=== PATIENT | male | born 1975 | race Caucasian/White ===

== ENCOUNTER 2023-01-07 21:45 | Outpatient (REF) | payer BC, SELFPAY ==
[2023-01-07 16:06] LABS: Abs Immature Grans 0.02 10^3/uL (0.0-0.06); Absolute Basophil Count 0.01 10^3/uL (0.0-0.2); Absolute Eosinophil Count 0.13 10^3/uL (0.0-0.7); Absolute Lymphocyte Count 2.53 10^3/uL (1.2-3.4); Absolute Monocyte Count 0.64 10^3/uL (0.1-0.8); Absolute Neutrophil Count 2.75 10^3/uL (1.2-6.7); Basophils % 0.2; Eosinophils % 2.1; HCT 41.8 % (40.0-50.0); HGB 13.9 g/dL (13.5-17.5); Immature Grans % 0.3; Lymphocytes % 41.6; MCH 29.1 pg (27.0-33.0); MCHC 33.3 % (32.0-36.0); MCV 87 fL (80-95); Monocytes % 10.5; Neutrophils % 45.3; Platelet Count 207 10^3/uL (130-400); RBC 4.78 10^6/uL (4.36-5.78); RDW 12.6 % (11.8-14.1); RDW-SD 40.7 fL; WBC 6.08 10^3/uL (4.4-10.8)
[2023-01-07 16:29] LABS: ALT 41 U/L (16-63); AST 26 U/L (15-37); Albumin 4.3 g/dL (3.4-5.0); Alkaline Phosphatase 81 U/L (46-116); Anion Gap 7.8 mmol/L (3-11); BUN 23 mg/dL (7-18); Bilirubin, Total 0.2 mg/dL (0.2-1.0); CO2 29.2 mmol/L (21.0-32.0); CREATININE 0.6 mg/dL (0.70-1.30); Calcium 9.8 mg/dL (8.5-10.1); Calculated LDL 97 mg/dL (<100); Chloride 101 mmol/L (98-107); Cholesterol 156 mg/dL (<200); Estimated GFR 119.07 (mL/min/1.73m2); Glucose 102 mg/dL (74-106); HDL Cholesterol 37 mg/dL (40-60); Potassium 4.2 mmol/L (3.5-5.1); Sodium 138 mmol/L (136-145); Total Protein 8.3 g/dL (6.4-8.2); Triglyceride 112 mg/dL (<150)
[2023-01-07 17:11] LABS: Hemoglobin A1C 5.7 % (<5.7)
[2023-01-08 11:52] LABS: Hepatitis C Ab w Rflx HCV PCR Reactive (Negative)
[2023-01-09 12:23] LABS: HCV RNA Qualitative Undetected (Undetected)
== END 2023-01-07 21:46 | disposition home or self-care (01) ==
LOC: NCHCN 21:45
PROVIDERS: PCP Nurse Practitioner Family; Visit Provider Nurse Practitioner Family
DX: Z00.00 Encounter for general adult medical examination without abnormal findings (principal); Z72.0 Tobacco use; R73.03 Prediabetes; R06.2 Wheezing; D64.9 Anemia, unspecified; F12.10 Cannabis abuse, uncomplicated; B19.20 Unspecified viral hepatitis C without hepatic coma; I10 Essential (primary) hypertension
CPT/HCPCS: 80053; 80061; 86803; 87522; 83036; 85025

== ENCOUNTER 2023-03-08 13:20 | Emergency (ER) | payer BC, SELFPAY ==
[2023-03-08 13:32] VITALS: BP 131/83; PULSE 115; RESP 18; TEMP 37.2; O2SAT 98
--- NOTE | 2023-03-08 13:45 | DI.RAD_ITS ---
Exam(s) XR HAND RT COMPLETE EXAM: XR HAND RT COMPLETE CLINICAL HISTORY: trauma. TECHNIQUE: 2D digital imaging was performed. Three views. COMPARISON: No exams were available for comparison FINDINGS: BONES: No acute fracture is present. No bony destructive lesion is seen. JOINTS: No dislocation present. Severe deformity at the 1st carpal metacarpal joint. Narrowing of the capitate lunate joint. SOFT TISSUE: Dorsal swelling. No gas collection or foreign body. IMPRESSION: Dorsal soft tissue swelling. No acute fracture. DATA REPOSITORY: RADIATION DOSE DELIVERED:
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
--- NOTE | 2023-03-08 15:23 | DI.VRAD_ITS ---
PROCEDURE INFORMATION: Exam: XR Right Hand Exam date and time: 03/08/2023 2:23 PM Age: 48 years old Clinical indication: Other: Trauma TECHNIQUE: Imaging protocol: Radiologic exam of the right hand. 3image(s) are provided. Views: 3 or more views. COMPARISON: No relevant prior studies available. FINDINGS: Bones/joints: Osseous alignment is maintained.No displaced fracture or dislocation is appreciated. There is however some advanced chronic degenerative deformity about the 1st carpometacarpal junction. There is some mild chronic appearing radiocarpal level narrowing. Soft tissues: No radiopaque foreign body or diffuse subcutaneous emphysema is appreciated. There is some diffuse soft tissue swelling demonstrated overall including dorsal predominance on the lateral view. IMPRESSION: There is diffuse soft tissue swelling with some dorsal predominance on the lateral view. Consider if there is history of injury or inflammation as this could be seen with either these processes. Dictated and Authenticated by: Parveen Estevez MD. Ordering:WES Klein MD
== END 2023-03-08 14:54 | disposition home or self-care (01) ==
PROVIDERS: Emergency Provider Emergency Medicine; PCP Nurse Practitioner Family
DX: L03.113 Cellulitis of right upper limb (principal)
CPT/HCPCS: 99283; 73130; 99284

== ENCOUNTER → 2023-03-17 01:05 | Outpatient (CLI) | payer BC, SELFPAY ==
--- NOTE | 2023-03-17 09:30 | DI.RAD_ITS ---
Exam(s) RF BARIUM SWALLOW EXAM: RF BARIUM SWALLOW CLINICAL HISTORY: INTERMITTENT DYSPHAGIA, R13.10 TECHNIQUE: 2D and realtime digital imaging was performed. CONTRAST MATERIAL: Oral barium Oral water soluble contrast was administered. COMPARISON: No exams were available for comparison FINDINGS: CHEST X-RAY: The heart and pulmonary vasculature are within normal limits. The lungs are clear. No pl eural effusion or pneumothorax is present. The bones are within normal limits for the patient's age. ESOPHAGRAM: The esophagus is patent with no evidence for erosions, fold thickening, strictures, or ma sses. With regards to the motility, there is a normal primary stripping wave. There is a small outpou theo in the mid esophagus just below the aortic knob. There is a question of some irregularity of t he base of the outpouching. There is a small hiatal hernia. IMPRESSION: 1. Small outpouching in the mid esophagus just below the aortic knob with question of irregularity of the base. Upper endoscopy is recommended for further evaluation. Ulceration or mass should be excl uded. 2. Small hiatal hernia. Unexpected findings RADIATION DOSE DELIVERED: roni Culp=32.1 mGy
[2023-03-17] MEDS: Barium Sulfate 700 MG TAB PO (10:38)
[2023-03-17] MEDS: Simethicone/Sod Bicarb/Cit Ac, 4 gram PACKET 1 PACKET PO (10:38)
[2023-03-17] MEDS: Barium Sulfate 60% W/V 355 ML BTL PO (10:39)
[2023-03-17] MEDS: Barium Sulfate 98% W/W 140 ML BTL PO (10:39)
== END ==
PROVIDERS: PCP Nurse Practitioner Family; Visit Provider Nurse Practitioner Family
DX: Q40.1 Congenital hiatus hernia (principal); R13.10 Dysphagia, unspecified
CPT/HCPCS: 74221; J3490

== ENCOUNTER 2023-04-23 09:11 | Day surgery (SDC) | payer BC, SELFPAY ==
[2023-04-23 09:40] VITALS: BP 124/90; PULSE 69; RESP 16; TEMP 36.5; O2SAT 98
[2023-04-23] MEDS: Lactated Ringers 1,000 ML 80 ML IV (10:17)
--- NOTE | 2023-04-23 10:17 | ANES.PREOP_ITS ---
General Info Date of Service Date Performed: 04/23/23 Height: 5 ft 10 in Weight: 96.434 kg Body Mass Index (BMI): 30.4 Surgical Procedure: Operation Date: 04/23/23 10:05 Proposed Procedure Side Surgeon p Gastroscopy Dominga Hernandez MD Meds Allergies and Home Medications Allergies Allergy/AdvReac Type Severity Reaction Status Date / Time No Known Allergies Allergy Verified 04/21/23 15:18 Home Medication Medication Instructions Recorded acetaminophen 650 mg PO PRN PRN 11/19/21 buprenorphine 2 mg-naloxone 0.5 mg 2 film buccal TID 11/19/21 sublingual film inulin 2 gram chewable tablet 4 g PO DAILY 11/19/21 (Fiber Gummies) lisinopril 40 mg tablet 40 mg PO DAILY 11/19/21 multivitamin 1 tab PO DAILY 11/19/21 naproxen 500 mg tablet 500 mg PO DIRECTED PRN 11/19/21 albuterol sulfate 90 mcg/actuation 2 puff inhalation PRN PRN 03/08/23 aerosol inhaler Current Visit Medications: Current Medications Generic Name Dose Route Start Last Admin Trade Name Freq PRN Reason Stop Dose Admin Ringer's Solution 1,000 mls @ 80 mls/hr 04/23/23 06:00 04/23/23 10:17 IV 05/22/23 23:59 80 mls/hr INFUSION JEANINE Administration IV Miscellaneous Supplies 1 each 04/23/23 06:00 Iv Access IV 05/22/23 23:59 DIRECTED JEANINE Sodium Chloride 0 ml 04/23/23 06:00 Normal Saline Flush 10 Ml Syr IV 05/22/23 23:59 PRN PRN Sodium Chloride 0 ml 04/23/23 06:00 Normal Saline 10 Ml Vial IJ 05/22/23 23:59 DIRECTED PRN Sterile Water 0 ml 04/23/23 06:00 Water,Injection,Sterile 10 Ml Vial IJ 05/22/23 23:59 DIRECTED PRN PFSH Active Problems Active Problems: Problem Status Onset Code Sensorineural hearing loss (SNHL) of both ears H90.3 Dysphagia R13.10 Cellulitis of right hand L03.113 Medical History Medical History Anemia Expiratory wheezing Family history of colon cancer Hepatitis C per pt. tx and cured Hypertensive disorder Joint pain Left shoulder pain Opioid abuse, in remission h/o IVDU, sober since 2007 Prediabetes Wheezing Surgical History Surgical History (Updated 04/23/23 @ 09:59 by Mellisa Higginbotham RN) H/O foot surgery H/O shoulder surgery History of colonoscopy History of hernia repair Tobacco Smoking/Tobacco Use Status: Current every day Tobacco Type: cigarettes and e- cigarettes Alcohol Alcohol Intake: never Substance Use Substance use: Occasionally Substance use type: marijuana Vital Signs and Lab Results Vital Signs Most Recent Vital Signs in EMR: Most Recent Vital Signs Temp Pulse Resp BP Pulse Ox 36.5 C 69 16 124/90 98 04/23/23 09:40 04/23/23 09:40 04/23/23 09:40 04/23/23 09:40 04/23/23 09:40 Lab Results Blood Type / Crossmatch: No Data to Display Complete Blood Count: No Data to Display Complete Metabolic Panel: No Data to Display Liver Function Panel: No Data to Display Coagulation Panel: No Data to Display Cardiac Panel: No Data to Display Arterial Blood Gas: No Data to Display Venous Blood Gas: No Data to Display Pancreas Panel: No Data to Display Thyroid Panel: No Data to Display Infectious Disease: No Data to Display Blood Cultures: No Data to Display Toxicology Panel: No Data to Display Anesthesia Assessment and Plan Anesthesia History Personal History: No History of Anesthesia Complications Family History: No Family History of Anesthesia Complications Exercise Tolerance Exercise Tolerance: Metabolic Equivalents>4 Pertinent Negatives Pertinent Negatives: No Symptoms of GERD and No Major Cardiovascular Symptoms or Complaints Cardiac & Pulmonary Exam Cardiac Exam: Normal S1/S2 Heart Sounds Pulmonary Exam: Clear Bilateral Breath Sounds Implantable Cardiac Device Does patient have a Pacemaker or an ICD?: No Airway Exam Known Difficult Airway: No Mallampati Class: 2 Mouth Opening: Normal (> 3cm) Thyromental Distance: Greater than 3 cm Neck Range of Motion: Full ROM Neck Circumference: Normal Teeth Condition: Removable Dentures/Plates Upper ASA Classification ASA Score: ASA 2 Emergency Case?: No NPO Status NPO Status: NPO Clears >2 hours, Solids >8 hours Anesthesia Plan Resuscitation Status: Full Code Anesthesia Technique: General Anesthesia Airway Planned: Natural Airway Monitors Used: Standard Monitors
[2023-04-23 10:18] VITALS: BMI 30.4
--- NOTE | 2023-04-23 10:36 | W.PM.PROGNOT ---
Date of Service Date of service: 04/23/23 Time of Service: 10:36 Assessment and Plan Assessment and plan (1) Dysphagia: Status: Acute Assessment and plan: Kerwin is a pleasant 48-year-old gentleman who comes in with some episodes of dysphagia.? He did have a barium swallow which questioned some narrowing at the distal esophagus and possible a pocket.? He states that most the time when it happens it is due to eating meat or bread.? He feels like it is getting stuck in the middle of his chest.? It causes pain.? He tries to wash it down with some water but usually the water just ends up coming back up and he chokes on it.? He denies any hematemesis, burning epigastric pain or burning chest pain.? He does not have a morning cough.? He does not describe any acid taste in the back of his throat.? He has not been trialed on any PPIs or other antacids.? We discussed the pathophysiology of GERD and dysphagia.? I reviewed the procedure with him in detail using a pamphlet.? We reviewed the procedure itself as well as the goals of the procedure and the risks and benefits.? Patient was allowed to ask questions.? After conversation the patient had a good understanding of the possible risks and benefits of the procedure.? Risks, benefits and complications have been reviewed. Complications include but are not limited to bleeding, pain, perforation, sore throat, aspiration, and adverse reaction to the anesthesia (bradycardia, hypotension, hypoxia, tachycardia, ).? Questions were entertained and answered to their satisfaction and they wished to proceed. No guarantees were given or implied. Subjective Subjective Interval history since last seen: I saw Kerwin in [facility] prior to his EGD. He is doing well. He has not had any new symptoms. He has had some mild dysphagia. He hasn't had many episodes of dysphagia since I saw him. Objective Last Vital Signs Temp 97.7 F 04/23/23 09:40 Pulse 69 04/23/23 09:40 Resp 16 04/23/23 09:40 BP 124/90 04/23/23 09:40 Pulse Ox 98 04/23/23 09:40 Time Spent with Patient Time Spent with Patient: <25 minutes Time was spent: counseling the patient
--- NOTE | 2023-04-23 10:56 | W.PM.ENDDOP ---
Date of service: 04/23/23 Time of Service: 11:16 Endoscopy Report DATE OF PROCEDURE: 04/23/23 PRE-OP DIAGNOSIS: Dysphagia POST-OP DIAGNOSIS: other (gastritis and esophagitis) PROCEDURE: EGD with biopsies SURGEON: Dominga Hernandez ANESTHESIA TYPE: General:No Airway ESTIMATED BLOOD LOSS: 3 PATHOLOGY: other (Bx of stomach and esophagus) COMPLICATIONS: None DISPOSITION: same day INDICATIONS: Kerwin is a pleasant 48-year-old gentleman who comes in with some episodes of dysphagia.? He did have a barium swallow which questioned some narrowing at the distal esophagus and possible a pocket.? He states that most the time when it happens it is due to eating meat or bread.? He feels like it is getting stuck in the middle of his chest.? It causes pain.? He tries to wash it down with some water but usually the water just ends up coming back up and he chokes on it.? He denies any hematemesis, burning epigastric pain or burning chest pain.? He does not have a morning cough.? He does not describe any acid taste in the back of his throat.? He has not been trialed on any PPIs or other antacids.? We discussed the pathophysiology of GERD and dysphagia.? I reviewed the procedure with him in detail using a pamphlet.? We reviewed the procedure itself as well as the goals of the procedure and the risks and benefits.? Patient was allowed to ask questions.? After conversation the patient had a good understanding of the possible risks and benefits of the procedure.? Risks, benefits and complications have been reviewed. Complications include but are not limited to bleeding, pain, perforation, sore throat, aspiration, and adverse reaction to the anesthesia (bradycardia, hypotension, hypoxia, tachycardia, ).? Questions were entertained and answered to their satisfaction and they wished to proceed. No guarantees were given or implied. FINDINGS: inflammation of the stomach Inflammation of the distal esophagus with a small shallow ulcer at the GE junction PROCEDURE DESCRIPTION: After informed consent was obtained the patient was take to the procedure room and placed in a supine position. Monitors were applied and a time out was done. The patients name, date of , procedure type, allergies to medications and metal in their body was reviewed. A bite block was placed and the patient was sedated. Once sedated and comfortable the gastroscope was advanced through the oropharynx which was grossly normal into the esophagus. The proximal and mid-esophagus were normal. In the distal esophagus there was mild inflammation with a shallow ulcer noted. The scope was advanced into the stomach and through the pylorus into the 3rd portion of the duodenum. The duodenum was noted to be normal. The scope was retracted back into the stomach and biopsies were done to rule out H. pylori. There were no ulcers. The scope was retroflexed. The cardia and fundus were noted to be normal. There was no hiatal hernia noted. The scope was retracted back into the esophagus and biopsies were done of the GE junction to rule out Alanis's. The Z line was regular. The GE junction was at 35 cm. There was a shallow ulcer noted. Biopsy of the ulcer was done. The scope was removed and the patient was woken up and taken back to [facility] in stable condition.
--- NOTE | 2023-04-23 10:57 | W.PM.DSUDISC ---
Date of service: 04/23/23 Time of Service: 11:52 Discharge Plan Disposition Patient Disposition: Home Condition: Stable Discharge Details Reason For Visit: dysphagia Attending Provider: Dominga Hernandez Primary Care Provider: SANDI RIVERA Home Meds and New Rx's Prescriptions: New omeprazole 40 mg capsule,delayed release(DR/EC) 40 mg PO DAILY Qty: 90 3RF Continued acetaminophen 650 mg PO PRN PRN buprenorphine-naloxone 2-0.5 mg film 2 film buccal TID Rx Instructions: total 12 mg/day Fiber Gummies 2 gram tablet,chewable 4 g PO DAILY lisinopril 40 mg tablet 40 mg PO DAILY multivitamin Tablet 1 tab PO DAILY naproxen 500 mg tablet 500 mg PO DIRECTED PRN albuterol sulfate 90 mcg/actuation HFA aerosol inhaler 2 puff INHALATION PRN PRN Patient Comments: INHALE 2 PUFFS BY MOUTH EVERY 4 TO 6 HOURS NEEDED Discharge Instructions Instructions: Gastritis (DC), Diet for Stomach Ulcers and Gastritis (ED), GERD (Gastroesophageal Reflux Disease) (DC) Additional Instructions: Findings: inflammation of the stomach reflux with inflammation and a small ulcer in the esophagus Medications: please start Omeprazole 40 mg, 1 tab daily. Other: I will call you with results of your biopsies Please call if you develop: fevers >101.5 Nausea or Vomiting Abdominal pain that is not transient Rectal bleeding that is more then a tbsp A hard abdomen and inability to pass gas DAY SURGERY UNIT POST ENDOSCOPY INSTRUCTIONS Instructions for everyone who is given Anesthesia: For your safety, please do the following for the next 24 Hours: a. Do not drive or operate dangerous equipment b. Do not drink alcohol beverages or use any recreational drugs for the first 24 hours or while taking pain medications. The medications in your body may have a reaction that can be dangerous. c. Do not make any important decisions or sign any important papers 1. Generally there are no restrictions on your activity after a day or so has gone by, but you may feel a bit fatigued for a few days. 2. After you arrive home you may have a light meal and return to a normal diet as you can tolerate it without feeling sick to your stomach. 3. After surgery, you may feel pain or discomfort. This should be only transient, but if it persists please contact your doctor. 4. If there are any questions regarding the findings of your procedure, please feel free to contact your doctor. 6. If you are unable to contact your doctor with a problem, contact the hospital at [phone]. 7. Continue all your regular medications unless directed otherwise. I understand the above instructions and have no questions. Signature of Patient or Responsible Adult Escort Date/Time Name of Responsible Adult Escort Signature of Nurse Date/Time Activity:: Activity as Tolerated Shower/Bathe:: 24 hours Diet:: low acid Discharge Orders Discharge Orders: Discharge Order (Routine); Ordered 04/23/23 Ordered By: Dominga Hernandez DS: Diagnosis Discharge Diagnosis (1) Dysphagia: Status: Acute Asessment and Plan: Patient is seen and examined after their endoscopy. Patient has minimal sore throat. They have been able to tolerate liquids. They do not have any Nausea or Vomiting. They are not having any chest pain or shortness of breath. They have been able to pass gas and are not having any abdominal pain or distention. they have not vomited any blood. The vital signs have been stable-see nursing notes. We discussed findings on their endoscopy We reviewed the importance of lifestyle modifications- see diet recommendations We reviewed any new medications that the patient may be prescribed- see medicine reconciliation. Patient will either be sent a letter with the biopsy results or follow up in the office- see discharge instructions Patient was given explicit instructions for emergency follow up post endoscopy- see discharge instructions Patient verbalized understanding and was discharged in stable and satisfactory condition. See nursing notes.
--- NOTE | 2023-04-23 11:04 | STOM_PTH ---
PATIENT: Vince Laureano LOC: [facility] U#:[id number] AGE/SX: 48/M ROOM: RE04/23/[address]: Dominga Hernandez MD : 1975 BED: DIS: 04/23/2023 SPEC #: [id number] RECD: 04/23/23 12:59 STATUS: ARI REQ #: [id number] AICHA: 04/23/23 11:[address]: Dominga Hernandez DEPT: Surgical Specimen RECD BY: Karen Castro ENTERED: 04/23/23 13:00 SP TYPE: STOMACH OTHR DR: SANDI RIVERA, ELECTRONIC OPERATOR Tissues: 1 - STOMACH BIOPSY 2 - STOMACH BIOPSY 3 - ESOPHAGUS BIOPSY Procedures: GROSS AND MICRO LEVEL 4 Comments: [id number]
[2023-04-23 11:18] VITALS: BP 104/71; PULSE 60; RESP 18; TEMP 36.8; O2SAT 99
[2023-04-23 11:57] VITALS: BP 123/71; PULSE 60; RESP 18; TEMP 36.8; O2SAT 99
--- NOTE | 2023-04-23 12:56 | W.ANESPOSTOP ---
Postoperative Evaluation Date, Time and Location Date Performed: 04/23/23 Time Performed: 12:02 Patient Location: Day Surgery Unit Vital Signs Most Recent Imported Vital Signs: Most Recent Vital Signs Temp Pulse Resp BP Pulse Ox 36.8 C 60 18 123/71 99 04/23/23 11:57 04/23/23 11:57 04/23/23 11:57 04/23/23 11:57 04/23/23 11:57 Pain Score Most Recent Pain Score: Most Recent Pain Score Pain Level 0 04/23/23 11:57 Assessment Mental Status: Awake (Alert & Oriented to Patient Baseline) Airway and Respiratory Function: Patent airway with normal (patient baseline) respiratory exam Cardiovascular Function: Hemodynamically Stable Hydration Status: Adequately Hydrated Nausea & Vomiting: No Nausea or Vomiting Pain: Pt. Denies Any Pain Peripheral Nerve Block: Patient did not receive a nerve block
== END 2023-04-23 12:18 | disposition home or self-care (01) ==
PROVIDERS: PCP Nurse Practitioner Family; Visit Provider Surgery
PROC: 0DJ68ZZ Inspection of Stomach, Via Natural or Artificial Opening Endoscopic (ICD-10-PCS; CPT 43235; principal; 2023-04-23 10:00)
DX: K22.10 Ulcer of esophagus without bleeding (principal); K29.70 Gastritis, unspecified, without bleeding; R73.03 Prediabetes; Z80.0 Family history of malignant neoplasm of digestive organs; D64.9 Anemia, unspecified; K22.89 Other specified disease of esophagus
CPT/HCPCS: 43239; 88305

== ENCOUNTER → 2023-06-02 00:22 | Outpatient (CLI) | payer SELFPAY ==
--- NOTE | 2023-06-02 09:17 | DI.RAD_ITS ---
Exam(s) RF MODIFIED SPEECH BA SWALLOW TECHNIQUE: Modified barium swallow was performed in conjunction with speech pathology. CONTRAST MATERIAL: Oral barium contrast was administered. COMPARISON: CR,RF RF BARIUM SWALLOW from 03/17/2023 FINDINGS: Note that this is not a dedicated esophagram, distal esophagus not evaluated. There is no evidence of aspiration or penetration of thin liquids, barium coated cracker and barium p udding. Speech pathology report to follow. . . . IMPRESSION: Unremarkable examination. RADIATION DOSE DELIVERED: roni Culp=3.97 mGy
[2023-06-02] MEDS: Barium Sulfate Oral Paste 40% W/V 230 ML TUBE PO (09:29)
[2023-06-02] MEDS: Barium Sulfate 81% w/w for Oral Suspension 148 GM BTL PO (09:33)
--- NOTE | 2023-06-02 11:21 | ST.MBS ---
Date of Service Date of service: 06/02/23 Time of Service: 09:00 Modified Barium Swallow Study Findings: Video fluoroscopic Swallowing Evaluation (VFSE) / Modified Barium Swallow Study (MBS) Speech Language Pathology Report Patient referred for VFSE/MBSS from Dr. Dominga Hernandez given dysphagia complaints. HPI & Patient report of function: Patient is a 48 year old male with complaints of food sticking in sternal region intermittently, including bread/meat. This has occurred a 4-5 times over the past year. He denies difficulty with liquids, taking pills, or odynophagia. Workup to date has included barium swallow in February 2023 and endoscopy. Previous Imaging: See barium swallow/EGD reports IMPRESSIONS: Kerwin Laureano was seen for a MBSS/VFSE, revealing within normal limits oral pharyngeal swallow function. Patient demonstrates timely swallow initiation, adequate hyolaryngeal movement/base of toni retraction/pharyngeal wall movement and appropriate larygneal vestibule closure. There is no evidence of penetration or aspiration. Of notice, there is mild stasis within the pyriforms with trials of antonio cracker (no pharyngeal stasis with other trials) judged to be directly related to suboptimal mastication in light of missing dentition. Patient verbalizing good insight re: often not chewing food adequately as he is awaiting dentures. Education was provided re: importance of cutting food up small, adding extra condiments/sauces, and ensuring food is applesauce consistency prior to swallowing. With how infrequent patient's symptoms have been, it is possible these episodes are due to inadequately masticated solids. He will continue to monitor if symptoms occur with attention to mastication/food choices. No further ST needs identified at this time. Specialist referrals:? If symptoms persist despite focus on cutting food small/adding moisture to food/chewing food well (in light of missing dentition) - consider GI referral. RECOMMENDATIONS: Diet Texture Recommendation:? IDDSI LEVEL SOLIDS 7-Regular/Easy to Chew Solids (ADD EXTRA MOISTURE/SAUCES/CONDIMENTS. CUT FOOD UP SMALL.) LIQUIDS 0-Thin Liquids MEDICATIONS Whole with 0-Thin Liquids Diet texture modification is per patient's preference; please adjust diet textures at patient's discretion & collaboration with care team. Risk Management Strategies:? Behavioral reflux precautions, including upright position during + 90 mins after meals. Small bites, approx [id number] PLAN: No further ST indicated OBJECTIVE Videofluoroscopic Swallow Evaluation (VFSE/MBSS) was conducted in the lateral projection by Speech-Language Pathologist, in collaboration with Radiologist, to evaluate oropharyngeal swallow function. Anatomic view under fluoroscopy: WFL PO Barium Contrast Trials Oral barium water-soluble contrast was administered as follows: IDDSI Level 0 Varibar thin liquid (40% w/v) IDDSI Level 4 Varibar pudding/pureed/extremely thick (40% w/v) IDDSI Level 7 Regular Solid: 1/2 antonio cracker coated in 3 mL Varibar pudding MBSImP Component Scores COMPONENT Score and Description 1. 0 Lip closure (0-4) Resulted in no labial escape 2. 0 Hold Position (0-3) Maintained a cohesive bolus between tongue to palatal seal 3. 1 Bolus Preparation (0-4) Resulted in slow prolonged chewing/mashing with complete re-collection 4. 0 Bolus Transport (0-4) Was with brisk tongue motion 5. 0 Oral Residue (0-4) Was not observed. There was complete oral clearance 6. 1 Swallow Initiation (0-4) Occurred when the bolus head was in valleculae 7. 0 Soft Palate Elevation (0-4) Resulted in no bolus between soft palate and the pharyngeal wall 8. 0 Laryngeal Elevation (0-3) Demonstrated complete superior movement of thyroid cartilage with complete approximation of arytenoids to epiglottic petiole 9. 0 Anterior Hyoid Motion (0-2) Demonstrated complete anterior movement 10. 0 Epiglottic Movement (0-2) Resulted in complete inversion 11. 0 Laryngeal Closure (0-2) Was complete with no air or contrast in laryngeal vestibule 12. 0 Pharyngeal Stripping Wave (0-2) Was present and complete 13. NA Pharyngeal Contraction (0-3) 14. 0 PES Opening (0-3) Was completely distended and complete duration with no obstruction of flow 15. 0 Tongue Base Retraction (0-4) Allowed no contrast between the tongue base and posterior pharyngeal wall 16. 1 Pharyngeal Residue (0-4) Showed a trace within or on pharyngeal structures 17. NA Esophageal Clearance (0-4) Results COMPONENT Score and Description 1. 2 Oral Score (0-18) 2. 0 Pharyngeal Score (0-29) 3. 0 Esophageal Score (0-4) Penetration-Aspiration Scale COMPONENT Score and Description 1. 1 Thin liquid (1-8) Contrast did not enter the airway 2. NA [place] thick (1-8) 3. NA Honey thick (1-8) 4. 1 Pudding thick (1-8) Contrast did not enter the airway 5. 1 Cookie (1-8) Contrast did not enter the airway Thank you for allowing us to take part in this patient's care. Please feel free to contact the [facility] Speech Language Pathology Department with any questions/concerns. Coding CPT Codes EVALUATE SWALLOWING FUNCTION - [id number] ([id number])
== END ==
PROVIDERS: PCP Nurse Practitioner Family; Visit Provider Surgery
DX: R13.10 Dysphagia, unspecified (principal)
CPT/HCPCS: 92610; 74221

== ENCOUNTER 2023-07-25 12:09 | Emergency (ER) | payer MEDICAID, SELFPAY ==
[2023-07-25 12:11] VITALS: BP 159/94; PULSE 94; RESP 18; TEMP 36.9; O2SAT 98
--- OUTSIDE RECORDS SUMMARY | 2023-07-25 12:20 | XMS_ITS | CCD ---
Author Name Unknown Address [address] [place] [address] [phone] Organization Unknown Address [address] [place] [address] [phone] Care Team Providers Care Neuroscientist Name Role Phone SANTI SHOEMAKER Attending Physician [phone] SANTI SHOEMAKER Rounding (Secondary) Physician [phone] Vital Signs Unknown or Not Available. Allergies Allergy Code Allergy Type Reaction Status No Known Drug Allergies 0 No known drug allergies Active Procedures Unknown or Not Available. History of Immunizations Immunization Code Date COVID-19, mRNA, LNP-S, PF, 100 mcg/0.5mL dose or 50 mcg/0.25mL dose 11/17/2020 COVID-19, mRNA, LNP-S, PF, 100 mcg/0.5mL dose or 50 mcg/0.25mL dose 12/17/2020 COVID-19, mRNA, LNP-S, PF, 100 mcg/0.5mL dose or 50 mcg/0.25mL dose 11/07/2021 Problems Unknown or Not Available. Results Unknown or Not Available. Active Medications Unknown or Not Available. Medications Administered During Visit Unknown or Not Available. Encounters Encounter Diagnosis Diagnosis Code Start Date Shoulder joint prosthesis present [id number] 09/03/2022 Social History Smoking Status Code Start Date End Date Current every day smoker [id number] Patient Decision Aids Unknown or Not Available. Discharge Instructions You were admitted to [facility] on 09/03/2022 14:40 with a principal diagnosis of Presence of unspecified artificial shoulder joint You were discharged from [facility] on 09/03/2022 00:00 Should you have any questions prior to discharge, please contact a member of your healthcare team. If you have left the hospital and have any questions, please contact your primary care physician. Chief Complaint and Reason For Visit Unknown or Not Available. Function Status Unknown or Not Available. Plan of Care Unknown or Not Available. Referral/Transition of Care Unknown or Not Available.
--- OUTSIDE RECORDS SUMMARY | 2023-07-25 12:20 | XMS_ITS | CCD ---
Author Name Unknown Address [address] [place] [address] [phone] Organization Unknown Address [address] [place] [address] [phone] Care Team Providers Care Photonics Engineering Technician Name Role Phone SANTI SHOEMAKER Attending Physician [phone] SANTI SHOEMAKER Rounding (Secondary) Physician [phone] Vital Signs Unknown or Not Available. Allergies [...] Code Start Date Shoulder joint prosthesis present [id number] 03/04/2023 Social History Smoking Status Code Start Date End Date Current every day smoker [id number] Patient Decision Aids Unknown or Not Available. Discharge Instructions You were admitted to [facility] on 03/04/2023 09:16 with a principal diagnosis of Presence of left artificial shoulder joint You were discharged from [facility] on 03/04/2023 00:00 Should you have any questions prior [...]
--- OUTSIDE RECORDS SUMMARY | 2023-07-25 12:20 | XMS_ITS | CCD ---
Author Name Unknown Address [address] [place] [address] [id number] Organization Unknown Address [address] [place] [address] [phone] Care Team Providers Care Car Oiler Name Role Phone SANTI SHOEMAKER Attending Physician [phone] SANTI SHOEMAKER Rounding (Secondary) Physician [phone] Vital Signs Unknown or Not Available. Allergies [...] Code Start Date Shoulder joint prosthesis present [id number] 04/16/2022 Social History Smoking Status Code Start Date End Date Current every day smoker 486998875 Patient Decision Aids Unknown or Not Available. Discharge Instructions You were admitted to [facility] on 04/16/2022 07:34 with a principal diagnosis of Presence of right artificial shoulder joint You were discharged from [facility] on 04/16/2022 00:00 Should you have any questions prior [...]
--- OUTSIDE RECORDS SUMMARY | 2023-07-25 12:21 | XMS_ITS | CCD ---
Author Name Unknown Address [address] [place] [address] [phone] Organization Unknown Address [address] [place] [address] [phone] Care Team Providers Care Slackman Name Role Phone SANTI SHOEMAKER Attending Physician [phone] SANTI SHOEMAKER Rounding (Secondary) Physician [phone] Vital Signs Unknown or Not Available. Allergies [...] Encounters Encounter Diagnosis Diagnosis Code Start Date Pain in left shoulder [id number] 09/24/2021 Social History Smoking Status Code Start Date End Date Current every day smoker [id number] Patient Decision Aids Unknown or Not Available. Discharge Instructions You were admitted to [facility] on 09/24/2021 08:27 with a principal diagnosis of Pain in left shoulder You were discharged from [facility] on 09/24/2021 00:00 Should you have any questions prior [...]
--- OUTSIDE RECORDS SUMMARY | 2023-07-25 12:21 | XMS_ITS | CCD ---
Author Name Unknown Address [address] [place] [address] [phone] Organization Unknown Address [address] [place] [address] [phone] Care Team Providers Care Rn Home Health Name Role Phone SANTI SHOEMAKER Attending Physician [phone] SANTI SHOEMAKER Rounding (Secondary) Physician [phone] Vital Signs Unknown or Not Available. Allergies [...] Encounters Encounter Diagnosis Diagnosis Code Start Date Follow-up orthopedic assessment [id number] 11/26/2021 Social History Smoking Status Code Start Date End Date Current every day smoker 831100403 Patient Decision Aids Unknown or Not Available. Discharge Instructions You were admitted to [facility] on 11/26/2021 14:31 with a principal diagnosis of Encounter for other orthopedic aftercare You were discharged from [facility] on 11/26/2021 00:00 Should you have any questions prior [...]
--- OUTSIDE RECORDS SUMMARY | 2023-07-25 12:21 | XMS_ITS | CCD ---
Author Name Unknown Address [address] [place] [address] [phone] Organization Unknown Address [address] [place] [address] [phone] Care Team Providers Care Television Analyzer Name Role Phone SANTI SHOEMAKER Attending Physician [phone] Vital Signs Unknown or Not Available. Allergies [...] 11/07/2021 Problems Unknown or Not Available. Results JONAH COVID RHEONIX* - Bailey ect Date/Time: 11/13/2021 09:43 Test Name Code Test Result Test Units Test Ref Rang e Tier- 78976-7 PRE-OP N/A SARS COV2 RNA: 50461-5 NEGATIVE N/A REFERENCE RANGE: NEGAT Active Medications Unknown or Not Available. Medications Administered During Visit Unknown or Not Available. Encounters Encounter Diagnosis Diagnosis Code Start Date Pre-surgery testing [id number] 11/13/2021 Social History Smoking Status Code Start Date End Date Current every day smoker 706262714 Patient Decision Aids Unknown or Not Available. Discharge Instructions You were admitted to [facility] on 11/13/2021 08:21 with a principal diagnosis of Encounter for preprocedural laboratory examination You had the following tests done:JONAH COVID RHEONIX* You were discharged from [facility] on 11/13/2021 08:21 Should you have any questions prior to [...]
--- OUTSIDE RECORDS SUMMARY | 2023-07-25 12:21 | XMS_ITS | CCD ---
Author Name Unknown Address [address] [place] [address] [phone] Organization Unknown Address [address] [place] [address] [phone] Care Team Providers Care Cub Reporter Name Role Phone SANTI SHOEMAKER Attending Physician [phone] Vital Signs Unknown or Not Available. Allergies [...] 11/07/2021 Problems Unknown or Not Available. Results BASIC METABOLIC PANEL (BMP) - Collect Date/Time: 10/19/2021 13:25 Test Name Code Test Result Test Units Test Ref Rang e GLUCOSE 2345-7 141 mg/dL L=70 H=116 BUN 3094-0 20 mg/dL L=6 H=25 CREATININE 2160-0 0.73 mg/dL L=0.67 H=1.17 SODIUM SERUM 2951-2 140 mmol/L L=136 H=145 POTASSIUM SERUM 2823-3 3.6 mmol/L L=3.4 H=5 .2 CHLORIDE SERUM 2075-0 103 mmol/L L=96 H=110 CARBON DIOXIDE (CO2) 2028-9 29 mmol/L L=22 H=34 ANION GAP 58016-4 7.7 mmol/L CALCIUM SERUM 53379-8 9.1 mg/dL L=8.2 H=10. 2 AGE 46 years eGFR (non-Afr.Amer.) 96942-8 115 mL/min eGFR (Afr-Salvadorean) 95512-7 >120 mL/min C REACTIVE PROTEIN HIGH SENS ITIVITY* - Collect Date/Time: 10/19/2021 13:25 Test Name Code Test Result Test Units Test Ref Rang e CRP-HIGH SENS. 87925-3 26.16 mg/L L=0.00 H=3 .00 CRP-HIGH SENS 75062-4 2.62 mg/dL L=0.00 H=0. 30 CBC W/ DIFFERENTIAL* - Colle ct Date/Time: 10/19/2021 13:25 Test Name Code Test Result Test Units Test Ref Rang e WBC 6690-2 8.02 th/cmm L=5.00 H=10.00 NEUT % 56.1 % L=40.0 H=80.0 LYMPH % 32.8 % L=10.0 H=50.0 MONO % 30690-4 9.0 % L=2.0 H=12.0 EOS % 1.7 % L=0.0 H=8.0 BASO % 0.2 % L=0.0 H=3.0 IG % 2514-8 0.2 % L=0.0 H=1.1 NRBC % 76776-5 0.0 % L=0.0 H=0.0 NEUT abs count 751-8 4.5 th/cmm L=1.6 H=8. 4 LYMPH abs count 731-0 2.6 th/cmm L=1.5 H=4 .0 MONO abs count 742-7 0.7 th/cmm L=0.2 H=1. 0 EOS abs count 711-2 0.1 th/cmm L=0.0 H=0.5 BASO abs count 704-7 0.0 th/cmm L=0.0 H=0. 2 IG abs count 83108-9 0.0 th/cmm L=0.0 H=0.1 NRBC abs count 81479-6 0.0 mil/cmm L=0.0 H=0. 0 RBC 789-8 4.19 mil/cmm L=4.30 H=6.20 HEMOGLOBIN 718-7 12.0 gm/dL L=13.0 H=17.0 HEMATOCRIT 4544-3 36 % L=45 H=52 MCV 787-2 87 fL L=82 H=92 MCH 785-6 28.6 pg L=27.0 H=31.0 MCHC 786-4 33.1 % L=32.0 H=36.0 RDW-SD 788-0 45.9 fL L=39.0 H=49.0 PLATELET COUNT 777-3 257 th/cmm L=150 H=45 0 SED RATE* - Collect Date/Jeet e: 10/19/2021 13:25 Test Name Code Test Result Test Units Test Ref Rang e SED. RATE 4537-7 56 mm/hr L=0 H=15 MRSA/MSSA NASAL COMPLETE BY PCR* - Collect Date/Time: 10/19/2021 13:25 Test Name Code Test Result Test Units Test Ref Rang e MRSA 35750-5 NEGATIVE N/A Normal: Negati ve MSSA NEGATIVE N/A Normal: Negati ve Active Medications Unknown or Not Available. Medications Administered During Visit Unknown or Not Available. Encounters Encounter Diagnosis Diagnosis Code Start Date Pre-surgery evaluation [id number] 2 Social History Smoking Status Code Start Date End Date Current every day smoker 471684903 Patient Decision Aids Unknown or Not Available. Discharge Instructions You were admitted to [facility] on 10/19/2021 12:57 with a principal diagnosis of Encounter for other preprocedural examination You had the following tests done:BASIC METABOLIC PANEL (BMP)C REACTIVE PROTEIN HIGH SENSITIVITY*CBC W/ DIFFERENTIAL*MRSA/MSSA NASAL COMPLETE BY PCR*SED RATE* You were discharged from [facility] on 10/19/2021 12:57 Should you have any questions prior to discharge, please contact a member of your healthcare team. If you have left the hospital and have any questions, please contact your primary care physician. Chief Complaint and Reason For Visit Chief Complaint Date of Onset LT SHOULDER PAIN Function Status Unknown or Not Available. Plan of Care Unknown or Not Available. Referral/Transition of Care Unknown or Not Available.
--- OUTSIDE RECORDS SUMMARY | 2023-07-25 12:22 | XMS_ITS | CCD ---
Author Name Unknown Address [address] [place] [address] [phone] Organization Unknown Address [address] [place] [address] [phone] Care Team Providers Care Business Intelligence Reporting Analyst Name Role Phone SANTI SHOEMAKER Attending Physician [phone] Vital Signs Vital Sign Value Unit Date/Time Recent/Initial ? BMI (Body Mass Index) 31.57 kg/m^2 08/02/2021 14: 12 Initial VS Weight Measured 220 lbs 08/02/2021 14:12 Ini tial VS Height 70 in 08/02/2021 14:12 Initial VS BSA (Body Surface Area) 2.22 m^2 08/02/2021 1 4:12 Initial VS BP Systolic 116 mmHg 08/08/2021 15:30 Initial VS BP Diastolic 69 mmHg 08/08/2021 15:30 Initia l VS Respiratory Rate 16 bpm 08/08/2021 15:30 In itial VS Heart Rate 69 bpm 08/08/2021 15:30 Initial VS O2 % BldC Oximetry 94 % 08/08/2021 15:30 Initial VS Body Temperature 36.7 degrees 08/08/2021 15:30 In itial VS Allergies Allergy Code Allergy Type Reaction Status No Known Drug Allergies 0 No known drug allergies Active Procedures Procedure Code Procedure Type Date Surgical Arthroscopy Shoulde r Extensive Debridement 3 or More Discrete Structures 44454 CPT 08/08/2021 Injection Anesthetic Agent a nd/or Steroid; Brachial Plexus 17352 CPT 08/08/2021 Anesthesia, Open/Surg Arthro scopic Proc, Humeral Head & Neck, Sternoclav/AC/Shoulder Jt; NOS 45868 CPT 0 08/08/2021 History of Immunizations Immunization Code Date COVID-19, mRNA, LNP-S, PF, 100 mcg/0.5mL dose or 50 mcg/0.25mL dose 207 11/17/2020 COVID-19, mRNA, LNP-S, PF, 100 mcg/0.5mL dose or 50 mcg/0.25mL dose 12/17/2020 COVID-19, mRNA, LNP-S, PF, 100 mcg/0.5mL dose or 50 mcg/0.25mL dose 11/07/2021 Problems Unknown or Not Available. Results GRAM STAIN* - Collect Date/T gilmer: 08/08/2021 15:00 Test Name Code Test Result Test Units Test Ref Rang e SOURCE- Other N/A WBC s many N/A PREDOMINANT ORGANISM No bacteria seen N/A GRAM STAIN* - Collect Date/T gilmer: 08/08/2021 15:00 Test Name Code Test Result Test Units Test Ref Rang e SOURCE- Other N/A WBC s few N/A PREDOMINANT ORGANISM No bacteria seen N/A GRAM STAIN* - Collect Date/T gilmer: 08/08/2021 15:00 Test Name Code Test Result Test Units Test Ref Rang e SOURCE- Other N/A WBC s none seen N/A PREDOMINANT ORGANISM No bacteria seen N/A GRAM STAIN* - Collect Date/T gilmer: 08/08/2021 15:00 Test Name Code Test Result Test Units Test Ref Rang e SOURCE- Other N/A WBC s few N/A PREDOMINANT ORGANISM No bacteria seen N/A GRAM STAIN* - Collect Date/T gilmer: 08/08/2021 15:00 Test Name Code Test Result Test Units Test Ref Rang e SOURCE- Other N/A WBC s none seen N/A PREDOMINANT ORGANISM No bacteria seen N/A Active Medications Medications Administered During Visit Medication Dose Units Frequency Route Date/Time of Last Dose LACTATED RINGERS 1000ML 1000 ML X1 08/08/2021 12:36 PREGABALIN CAPSULE: 50MG 100 MG X1 PO 08/08/2021 12:36 CELECOXIB CAPSULE: 100MG 200 MG X1 PO 08/08/2021 12:36 MIDAZOLAM INJ SDV: 2MG/2ML 2 MG X1 IVP 08/08/2021 13:00 Encounters Encounter Diagnosis Diagnosis Code Start Date Pain in left shoulder [id number] 08/08/2021 Social History Smoking Status Code Start Date End Date Current every day smoker 843981922 Patient Decision Aids Unknown or Not Available. Discharge Instructions You were admitted to [facility] on 08/08/2021 11:48 with a principal diagnosis of Pain in left shoulder You had the following procedures done:Surgical Arthroscopy Shoulder Extensive Debridement 3 or More Discrete StructuresInjection Anesthetic Agent and/or Steroid; Brachial PlexusAnesthesia, Open/Surg Arthroscopic Proc, Humeral Head & Neck, Sternoclav/AC/Shoulder Jt; NOS You had the following tests done:GRAM STAIN*GRAM STAIN*GRAM STAIN*GRAM STAIN*GRAM STAIN* You were discharged from [facility] on 08/08/2021 16:10 Should you have any questions prior to discharge, please contact a member of your healthcare team. If you have left the hospital and have any questions, please contact your primary care physician. Chief Complaint and Reason For Visit Chief Complaint Date of Onset LEFT SHOULDER ARTHROSCOPY DEBRIDEMENT 60 MIN OP Function Status Unknown or Not Available. Plan of Care Unknown or Not Available. Referral/Transition of Care Unknown or Not Available.
--- OUTSIDE RECORDS SUMMARY | 2023-07-25 12:22 | XMS_ITS | CCD ---
Author Name Unknown Address [address] [place] [address] [phone] Organization Unknown Address [address] [place] [address] [phone] Care Team Providers Care Director Of Hotel Operations Name Role Phone SANTI SHOEMAKER Attending Physician [phone] Vital Signs Unknown or Not Available. Allergies [...] JONAH COVID RHEONIX* - Bailey ect Date/Time: 08/06/2021 16:06 Test Name Code Test Result Test Units Test Ref Rang e Tier- PRE-OP N/A SARS COV2 RNA: 86662-8 NEGATIVE N/A REFERENCE RANGE: NEGAT Active Medications Unknown or Not Available. Medications Administered During Visit Unknown or Not Available. Encounters Encounter Diagnosis Diagnosis Code Start Date Pre-surgery testing [id number] 08/06/2021 Social History Smoking Status Code Start Date End Date Current every day smoker 169065523 Patient Decision Aids Unknown or Not Available. Discharge Instructions You were admitted to on 08/06/2021 07:16 with a principal diagnosis of Encounter for preprocedural laboratory examination You had the following tests done:JONAH COVID RHEONIX* You were discharged from on 08/06/2021 07:16 Should you have any questions prior to [...]
--- OUTSIDE RECORDS SUMMARY | 2023-07-25 12:22 | XMS_ITS | CCD ---
Author Name Unknown Address [address] [place] [address] [phone] Organization Unknown Address [address] [place] [address] [phone] Care Team Providers Care Vending Stand Supervisor Name Role Phone SANTI SHOEMAKER Attending Physician [phone] SANTI SHOEMAKER Rounding (Secondary) Physician [phone] Vital Signs Unknown or Not Available. Allergies [...] Encounters Encounter Diagnosis Diagnosis Code Start Date Refusal of treatment by patient [id number] 08/08/2021 Social History Smoking Status Code Start Date End Date Current every day smoker 025680876 Patient Decision Aids Unknown or Not Available. Discharge Instructions You were admitted to [facility] on 08/08/2021 07:39 with a principal diagnosis of Procedure and treatment not carried out because of patient's decision for unspecified reasons You were discharged from [facility] on 08/08/2021 07:40 Should you have any questions prior to [...]
--- OUTSIDE RECORDS SUMMARY | 2023-07-25 12:22 | XMS_ITS | CCD ---
Author Name Unknown Address [address] [place] [address] [phone] Organization Unknown Address [address] [place] [address] [phone] Care Team Providers Care Backing In Machine Tender Name Role Phone SANTI SHOEMAKER MD Attending Physician [phone] Vital Signs Unknown or Not Available. Allergies Unknown or Not Available. Procedures Unknown or Not Available. History of [...] Encounters Encounter Diagnosis Diagnosis Code Start Date History of parasitic disease [id number] 03/27/2021 Social History Smoking Status Code Start Date End Date Current every day smoker 260675463 Patient Decision Aids Unknown or Not Available. Discharge Instructions You were admitted to [facility] on 03/27/2021 13:30 with a principal diagnosis of Personal history of other infectious and parasitic diseases You were discharged from [facility] on 03/27/2021 13:30 Should you have any questions prior to [...]
--- OUTSIDE RECORDS SUMMARY | 2023-07-25 12:22 | XMS_ITS | CCD ---
Author Name Unknown Address [address] [place] [address] [id number] Organization Unknown Address [address] [place] [address] [id number] Care Team Providers Care Metalizing Supervisor Name Role Phone SANTI SHOEMAKER Attending Physician [phone] SANTI SHOEMAKER Rounding (Secondary) Physician [phone] Vital Signs Unknown or Not Available. Allergies [...] Code Start Date Pain in left shoulder [id number] 06/05/2021 Social History Smoking Status Code Start Date End Date Current every day smoker [id number] Patient Decision Aids Unknown or Not Available. Discharge Instructions You were admitted to [facility] on 06/05/2021 08:53 with a principal diagnosis of Pain in left shoulder You were discharged from [facility] on 06/05/2021 10:10 Should you have any questions prior to [...]
--- NOTE | 2023-07-25 12:36 | W.ED.GENAD ---
Discharge Plan Disposition Patient Disposition: Home Discharge Details Clinical Impression: Internal derangement of knee Primary Care Provider: SANDI RIVERA ED Provider: Karen Valverde Home Meds and New Rx's Prescriptions: Continued acetaminophen 650 mg PO PRN PRN buprenorphine-naloxone 2-0.5 mg film 2 film buccal TID Rx Instructions: total 12 mg/day Fiber Gummies 2 gram tablet,chewable 4 g PO DAILY lisinopril 40 mg tablet 40 mg PO DAILY multivitamin Tablet 1 tab PO DAILY naproxen 500 mg tablet 500 mg PO DIRECTED PRN albuterol sulfate 90 mcg/actuation HFA aerosol inhaler 2 puff INHALATION PRN PRN Patient Comments: INHALE 2 PUFFS BY MOUTH EVERY 4 TO 6 HOURS NEEDED Discharge Instructions Additional Instructions: Wear your knee brace Take ibuprofen and Tylenol as needed for pain Apply your diclofenac gel Should you develop redness, worsening difficulty moving your knee, fever greater than 100.4, please return for reassessment at this time your knee does not appear to be infected Also before you go to your orthopedic appointment I recommend getting a copy of your x-ray from [facility] Referrals: SADNI RIVERA, HA[employer]MASTERS MANAGER [Primary Care Provider] - Stanford Edouard MD [ [facility] STAFF PHYSICIAN] - Discharge Data Discharge Date/Time-TO BE ENTERED AT DEPARTURE: 07/25/23 12:45 Medical Decision Making This is a 48-year-old male presenting with left knee pain, evaluated yesterday at [facility] urgent care had blood work and x-ray, told he has a knee effusion, concern for infection, patient is afebrile and nontoxic, he is moving his knee in the room, there is a notable effusion, I will not reorder x-ray as low suspicion for fracture, suspect internal derangement with knee effusion Patient referred to orthopedics for further evaluation status post injury 1 month ago Patient in no acute distress, no evidence of septic arthritis, no erythema overlying knee joint, moderate effusion appreciated, we talked about performing another x-ray, however patient had an x-ray yesterday and will obtain the results of his x-ray and bring them to his orthopedic appointment, neurovascularly intact, no calf swelling or tenderness appreciated he is placed in a hinged knee brace for comfort, he has asked if I would perform arthrocentesis, at this time, there is no evidence of infection and he is not in significant pain so performing a therapeutic drainage of knee I think is more of a risk than the benefit I will refer to orthopedics in the outpatient setting for further assessment at their discretion HPI General Date/Time Provider Initiated Documentation: 07/25/23 12:20. HPI Narrative: This 48-year-old male presents with report of knee pain for approximately 1 month intermittently. Concerned because approximately a week ago he developed some swelling. He was evaluated at [facility] yesterday had some blood work and an x-ray, states that inflammatory markers were elevated on the blood work, denies any change in the pain or swelling today. He states he is able to flex and extend it and at times has some discomfort but denies any dramatic change, fever, or redness to the area. Denies history of illicit drug use. Denies history of diabetes. Related Data Home Medications Medication Instructions Recorded Confirmed acetaminophen 650 mg PO PRN PRN 11/19/21 07/25/23 buprenorphine 2 mg-naloxone 0.5 mg 2 film buccal TID 11/19/21 07/25/23 sublingual film inulin 2 gram chewable tablet 4 g PO DAILY 11/19/21 07/25/23 (Fiber Gummies) lisinopril 40 mg tablet 40 mg PO DAILY 11/19/21 07/25/23 multivitamin 1 tab PO DAILY 11/19/21 07/25/23 naproxen 500 mg tablet 500 mg PO DIRECTED PRN 11/19/21 07/25/23 albuterol sulfate 90 mcg/actuation 2 puff inhalation PRN PRN 03/08/23 07/25/23 aerosol inhaler Allergies Allergy/AdvReac Type Severity Reaction Status Date / Time No Known Allergies Allergy Verified 07/25/23 12:15 General Stated Complaint: Orthopedic SONI: 3 PFSH All Active Problems (Updated 07/25/23 @ 12:36 by JAMES Zambrano) Internal derangement of knee (Acute) Follow up (Acute) Sensorineural hearing loss (SNHL) of both ears (Acute) Dysphagia (Acute) Cellulitis of right hand (Acute) Medical History Anemia Expiratory wheezing Family history of colon cancer Hepatitis C per pt. tx and cured Hypertensive disorder Joint pain Left shoulder pain Opioid abuse, in remission h/o IVDU, sober since 2007 Prediabetes Wheezing Surgical History H/O foot surgery H/O shoulder surgery History of colonoscopy History of esophagogastroduodenoscopy (~03/2023) History of hernia repair Family History Father Colon cancer Hypertension Mother Dementia Hypertension Other Diabetes Social History Smoking/Tobacco Use Status: Current every day Tobacco Type: cigarettes and e-cigarettes Smoking risk assessment performed?: Yes Alcohol Intake: never Drug use: Occasionally Substance use type: marijuana Household members: spouse Housing: house Number of Children: 1 What is your relationship status?: Panel score (0-1 are the most socially isolated patients): 1 Do you feel safe at home: Yes Do you feel safe in your relationship?: Yes Course Vital Signs Vital signs: Vital Signs Temperature 36.9 C 07/25/23 12:11 Pulse 94 H 07/25/23 12:11 Respiratory Rate 18 07/25/23 12:11 Blood Pressure 159/94 H 07/25/23 12:11 Pulse Oximetry 98 07/25/23 12:11 Temperature 36.9 C 07/25/23 12:11 Temperature Source Temporal Artery Scan 07/25/23 12:11 Pulse 94 H 07/25/23 12:11 Respiratory Rate 18 07/25/23 12:11 Respiratory Effort Normal, Non-Labored 07/25/23 12:16 Blood Pressure 159/94 H 07/25/23 12:11 Blood Pressure Position Sitting 07/25/23 12:11 Pulse Oximetry 98 07/25/23 12:11 Oxygen Delivery Method Room Air 07/25/23 12:11 Oxygen Flow Rate 0 07/25/23 12:11
== END 2023-07-25 12:45 | disposition home or self-care (01) ==
PROVIDERS: Emergency Provider Physician Assistant; PCP Nurse Practitioner Family
DX: M23.92 Unspecified internal derangement of left knee (principal)
CPT/HCPCS: 99283

== ENCOUNTER → 2023-08-22 00:29 | Outpatient (CLI) | payer MEDICAID, SELFPAY ==
--- NOTE | 2023-08-22 08:32 | DI.MRI_ITS ---
Exam(s) MR LOWER JOINT LT WO EXAM: MR LOWER JOINT LT WO CLINICAL HISTORY: L KNEE PAIN,INTERNAL DERANGEMENT KNEE,MCL SPRAIN,M23.90,S83.412A. TECHNIQUE: Multiplanar multisequence MRI was performed. COMPARISON: CR,RF XR KNEE COMPLETE MIN 4V LT from 07/24/2023 FINDINGS: BONES: There is no fracture or contusion pattern. Degenerative subchondral cysts seen in the proxim al tibia. Degenerative cysts seen anteriorly in the arm distal femur, adjacent to the level of the p atellofemoral joint. Degenerative cysts also seen in the posterior, lateral aspect of the lateral fe moral condyle. JOINTS: A moderate-sized joint effusion is present. Articular cartilage: Patellofemoral joint: Loss of cartilage over the lateral patellar facet, extend ing down to bone. Some edema and underlying bone. Prominent spurring at the lateral aspect of the p atella. Medial femoral tibial joint: Articular cartilage is unremarkable. Lateral femoral tibial joint: Linear signal extending through the superior aspect of the posterior h orn to the superior articular surface. TENDONS: Extensor mechanism: Unremarkable. Medial retinaculum: Unremarkable. Lateral retinaculum: Unremarkable. Popliteus: Unremarkable. MUSCLES: Unremarkable. MENISCI: The medial meniscus which is linear horizontal tear in the posterior horn extending to the inferior a rticular surface. The lateral meniscus is unremarkable. SOFT TISSUES: Small posterior synovial cysts or ganglia. LIGAMENTS: Anterior Cruciate: Unremarkable. Posterior Cruciate: Unremarkable. Medial Collateral:Some surrounding fluid but no visible tear. Lateral Collateral: Unremarkable. IMPRESSION: Severe degenerative changes at the patellofemoral joint. Joint effusion. Inferior surfacing horizontal tear posterior horn of the medial meniscus. Superior surfacing posterior horn of the lateral meniscus DATA REPOSITORY:
== END ==
PROVIDERS: PCP Nurse Practitioner Family; Visit Provider Student in an Organized Health Care Education/Training Program
DX: M23.322 Other meniscus derangements, posterior horn of medial meniscus, left knee (principal)
CPT/HCPCS: 73721

== ENCOUNTER 2023-11-25 11:05 | Outpatient (REF) | payer MEDICAID, SELFPAY ==
[2023-11-25 22:17] LABS: ALT 71 U/L (16-63); AST 28 U/L (15-37); Albumin 4.3 g/dL (3.4-5.0); Alkaline Phosphatase 76 U/L (46-116); Anion Gap 4.4 mmol/L (3-11); BUN 26 mg/dL (7-18); Bilirubin, Total 0.2 mg/dL (0.2-1.0); CO2 33.6 mmol/L (21.0-32.0); CREATININE 0.8 mg/dL (0.70-1.30); Calcium 10.1 mg/dL (8.5-10.1); Chloride 103 mmol/L (98-107); Estimated GFR 108.49 (mL/min/1.73m2); Glucose 98 mg/dL (74-106); Potassium 4.9 mmol/L (3.5-5.1); Sodium 141 mmol/L (136-145)
== END 2023-11-25 11:06 | disposition home or self-care (01) ==
LOC: NCHCN 11:05
PROVIDERS: PCP Nurse Practitioner Family; Visit Provider Family Medicine
DX: I10 Essential (primary) hypertension (principal)
CPT/HCPCS: 80053

== ENCOUNTER 2024-08-09 08:45 | Day surgery (SDC) | payer MEDICAID, SELFPAY ==
[2024-08-09 09:41] VITALS: BP 135/99; PULSE 66; RESP 18; TEMP 36.3; O2SAT 97
--- NOTE | 2024-08-09 10:28 | W.ANESPRE ---
General Info Date of Service Date Performed: 08/09/24 Height: 5 ft 9 in Weight: 99.8 kg Body Mass Index (BMI): 32.5 Surgical Procedure: Operation Date: 08/09/24 10:35 Proposed Procedure Side Surgeon enrique Oneal MD Meds Allergies and Home Medications Allergies Allergy/AdvReac Type Severity Reaction Status Date / Time No Known Allergies Allergy Verified 08/09/24 09:30 Home Medication ?Medication ?Instructions ?Recorded acetaminophen 650 mg PO PRN PRN 11/19/21 inulin 2 gram chewable tablet 4 g PO DAILY 11/19/21 (Fiber Gummies) lisinopril 40 mg tablet 40 mg PO DAILY 11/19/21 multivitamin 1 tab PO DAILY 11/19/21 naproxen 500 mg tablet 500 mg PO DIRECTED PRN 11/19/21 albuterol sulfate 90 mcg/actuation 2 puff inhalation PRN PRN 03/08/23 aerosol inhaler budesonide-formoterol HFA 160 2 puff inhalation BID 04/01/24 mcg-4.5 mcg/actuation aerosol inhaler (Symbicort) buprenorphine 100 mg/0.5 mL 100 mg subcut QMONTH 04/01/24 solution,exten.rel.subcutaneous syringe (Sublocade) bisacodyl 5 mg tablet,delayed 5 mg PO ONCE #4 tabs 07/15/24 release (Dulcolax (bisacodyl)) polyethylene glycol 3350 17 17 g PO ONCE #238 grams 07/15/24 gram/dose oral powder Current Visit Medications: Current Medications Generic Name Dose Route Start Last Admin Trade Name Pranayq PRN Reason Stop Dose Admin Ringer's Solution 1,000 mls @ 80 mls/hr 08/09/24 09:00 IV 09/08/24 08:59 INFUSION JEANINE IV Miscellaneous Supplies 1 each 08/09/24 06:00 Iv Access IV 08/09/24 23:59 DIRECTED JEANINE Sodium Chloride 0 ml 08/09/24 06:00 Normal Saline Flush 10 Ml Syr IV 08/09/24 23:59 PRN PRN Sodium Chloride 0 ml 08/09/24 06:00 Normal Saline 10 Ml Vial IJ 08/09/24 23:59 DIRECTED PRN Sterile Water 0 ml 08/09/24 06:00 Water,Injection,Sterile 10 Ml Vial IJ 08/09/24 23:59 DIRECTED PRN PFSH Active Problems Active Problems: Problem Status Onset Code Essential hypertension Acute I10 Cannabis use disorder Acute F12.90 Tobacco user Acute Z72.0 Tear of medial meniscus of left knee Acute S83.242A Osteoarthritis of left knee Acute M17.12 MCL sprain of left knee Acute ~06/2023 S83.412A Sensorineural hearing loss (SNHL) of both ears Acute H90.3 Dysphagia Acute R13.10 Cellulitis of right hand Acute L03.113 Medical History Medical History History of psychiatric disorder Osteoarthritis Follow up Family history of colon cancer Wheezing Left shoulder pain Hepatitis C (~11/21/22) per pt. tx and cured Prediabetes Expiratory wheezing Joint pain Hypertensive disorder Anemia Opioid abuse, in remission (~07/13/23) h/o IVDU, sober since 2007 Surgical History Surgical History History of esophagogastroduodenoscopy (~03/2023) History of colonoscopy History of hernia repair H/O foot surgery H/O shoulder surgery Tobacco Smoking/Tobacco Use Status: Current every day Tobacco Type: e-cigarettes Alcohol Alcohol Intake: never Substance Use Substance use: Occasionally Substance use type: former substance user and marijuana Vital Signs and Lab Results Vital Signs Most Recent Vital Signs in EMR: Most Recent Vital Signs Temp Pulse Resp BP Pulse Ox 36.3 C L 66 18 135/99 H 97 08/09/24 09:41 08/09/24 09:41 08/09/24 09:41 08/09/24 09:41 08/09/24 09:41 Lab Results Blood Type / Crossmatch: No Data to Display Complete Blood Count: No Data to Display Complete Metabolic Panel: No Data to Display Liver Function Panel: No Data to Display Coagulation Panel: No Data to Display Cardiac Panel: No Data to Display Arterial Blood Gas: No Data to Display Venous Blood Gas: No Data to Display Pancreas Panel: No Data to Display Thyroid Panel: No Data to Display Infectious Disease: No Data to Display Blood Cultures: No Data to Display Toxicology Panel: No Data to Display Anesthesia Assessment and Plan Anesthesia History Personal History: No History of Anesthesia Complications Family History: No Family History of Anesthesia Complications Exercise Tolerance Exercise Tolerance: Metabolic Equivalents>4 Pertinent Negatives Pertinent Negatives: No Symptoms of GERD, No Major Cardiovascular Symptoms or Complaints and No Major Pulmonary Symptoms or Complaints Cardiac & Pulmonary Exam Cardiac Exam: Normal S1/S2 Heart Sounds Pulmonary Exam: Clear Bilateral Breath Sounds Cardiac and Pulmonary Comment:: Daily Symbicort, occ wheeze, smoker Implantable Cardiac Device Does patient have a Pacemaker or an ICD?: No Airway Exam Known Difficult Airway: No Mallampati Class: 2 Mouth Opening: Normal (> 3cm) Thyromental Distance: Greater than 3 cm Neck Range of Motion: Full ROM Neck Circumference: Normal Teeth Condition: Generalized Poor Dentition (few teeth on bottom, none loose per pt. ) and Removable Dentures/Plates Upper ASA Classification ASA Score: ASA 2 Emergency Case?: No NPO Status NPO Status: NPO Clears >2 hours, Solids >8 hours Anesthesia Plan Resuscitation Status: Full Code Anesthesia Technique: General Anesthesia Airway Planned: Natural Airway Monitors Used: Standard Monitors Preoperative Comments:: 49 y/o male with history of HTN and dysphagia presents for colonoscopy screening. He states his last Colonoscopy was 3-4 years ago at [facility], which he believes was unremarkable. He has a family history of colon cancer in his father.
[2024-08-09 10:30] VITALS: BMI 32.5
[2024-08-09] MEDS: Lactated Ringers 1,000 ML 80 ML IV (10:30)
--- NOTE | 2024-08-09 10:57 | W.COLOREPORT ---
Date of service: 08/09/24 Time of Service: 11:01 Colonoscopy Report Procedure Description: PROCEDURES PERFORMED: 1. Colonoscopy PREOPERATIVE DIAGNOSIS: Surveillance colonoscopy, family history colon cancer POSTOPERATIVE DIAGNOSIS: Grade 1 internal hemorrhoids SURGEON: Srinivas Oneal MD INDICATION for procedure: 49-year-old man has a family history of colon cancer in his father. His previous colonoscopy was reportedly normal. He has no symptoms. FINDINGS: Terminal ileum was normal. No polyps were found. No diverticular disease. Grade 1 internal hemorrhoids are present. SURVEILLANCE interval/FOLLOW-UP: 5 years because of family history SPECIMENS: None EBL: Minimal COMPLICATIONS: None QUALITY of prep: Excellent Procedure in detail: The patient gave written consent and was in agreement with the indications, the potential risks as well as the benefits of the procedure. They were taken to the endoscopy suite and laid in the left lateral decubitus position. A timeout was performed and anesthesia was administered which was tolerated well. I started the procedure. Digital rectal and visual examination was performed and grossly within normal limits. A well-lubricated flexible colonoscope was then introduced and passed without any notable difficulty all the way to the cecum identified by the ileocecal valve and the appendiceal orifice. The terminal ileum was intubated and looked normal. The scope was then slowly withdrawn with the above-noted findings. The patient tolerated the procedure well and was taken to the PACU in hemodynamically stable condition.
[2024-08-09 10:59] VITALS: BP 122/87; PULSE 68; RESP 16; TEMP 36.2; O2SAT 96
--- NOTE | 2024-08-09 11:02 | W.PM.DSUDISC ---
Date of service: 08/09/24 Discharge Plan Disposition Patient Disposition: Home Condition: Good Discharge Details Attending Provider: Fernando Oneal Primary Care Provider: Kaleigh Lantigua Home Meds and New Rx's Prescriptions: No Action bisacodyl [Dulcolax (bisacodyl)] 5 mg tablet,delayed release (DR/EC) 5 mg PO ONCE Qty: 4 0RF Rx Instructions: Take per colonoscopy instructions provided by ordering providers office polyethylene glycol 3350 17 gram/dose powder 17 g PO ONCE Qty: 238 0RF Rx Instructions: Take per colonoscopy instructions provided by ordering providers office acetaminophen 650 mg PO PRN PRN Fiber Gummies 2 gram tablet,chewable 4 g PO DAILY lisinopril 40 mg tablet 40 mg PO DAILY multivitamin Tablet 1 tab PO DAILY naproxen 500 mg tablet 500 mg PO DIRECTED PRN Sublocade 100 mg/0.5 mL solution, extended rel syringe 100 mg subcut QMONTH Patient Comments: Pt reports upto 10 weeks in between injections. budesonide-formoterol [Symbicort] 160-4.5 mcg/actuation HFA aerosol inhaler 2 puff inhalation BID albuterol sulfate 90 mcg/actuation HFA aerosol inhaler 2 puff INHALATION PRN PRN Patient Comments: INHALE 2 PUFFS BY MOUTH EVERY 4 TO 6 HOURS NEEDED Discharge Instructions Additional Instructions: FINDINGS: No polyps were found. Nothing to be concerned about. Because your family history I recommend repeating a colonoscopy in 5 years. Activity:: Activity as Tolerated Diet:: As Tolerated
[2024-08-09 11:25] VITALS: BP 130/95; PULSE 64; RESP 18; TEMP 36.5; O2SAT 97
--- NOTE | 2024-08-09 11:26 | W.ANESPOSTOP ---
Postoperative Evaluation Date, Time and Location Date Performed: 08/09/24 Time Performed: 11:04 Patient Location: Day Surgery Unit Vital Signs Most Recent Imported Vital Signs: Most Recent Vital Signs Temp Pulse Resp BP Pulse Ox 36.2 C L 68 16 122/87 96 08/09/24 10:59 08/09/24 10:59 08/09/24 10:59 08/09/24 10:59 08/09/24 10:59 Pain Score Most Recent Pain Score: Most Recent Pain Score Pain Level 0 08/09/24 10:59 Assessment Mental Status: Awake (Alert & Oriented to Patient Baseline) Airway and Respiratory Function: Patent airway with normal (patient baseline) respiratory exam Cardiovascular Function: Hemodynamically Stable Hydration Status: Adequately Hydrated Nausea & Vomiting: No Nausea or Vomiting Pain: Pt. Denies Any Pain Peripheral Nerve Block: Patient did not receive a nerve block
== END 2024-08-09 11:45 | disposition home or self-care (01) ==
PROVIDERS: PCP Family Medicine; Visit Provider Student in an Organized Health Care Education/Training Program
PROC: 0DJD8ZZ Inspection of Lower Intestinal Tract, Via Natural or Artificial Opening Endoscopic (ICD-10-PCS; CPT 45378; principal; 2024-08-09 10:30)
DX: Z12.11 Encounter for screening for malignant neoplasm of colon (principal); K64.0 First degree hemorrhoids; Z80.0 Family history of malignant neoplasm of digestive organs
CPT/HCPCS: 45378; 00123; J2704

== ENCOUNTER 2024-11-16 01:19 | Outpatient (CLI) | payer MEDICAID, SELFPAY ==
--- NOTE | 2024-11-16 | DI.US_ITS ---
Exam(s) US ABDOMEN LIMITED EXAM: US ABDOMEN LIMITED CLINICAL HISTORY: R74.01 Elevated Liver Enzymes, above ref range TECHNIQUE: Ultrasound abdomen performed using standard protocol. COMPARISON: No exams were available for comparison FINDINGS: PANCREAS: Normal where visualized. LIVER: There is diffuse increased echogenicity of the liver consistent with hepatic steatosis. Hepat opetal flow in the Portal Vein. The liver measures in 20.2 cm length. No evidence of a hepatic mass. GALLBLADDER: No evidence of cholelithiasis. No evidence of wall thickening. No pericholecystic fluid identified. BILIARY SYSTEM: Common bile duct measures < 7 mm. No intrahepatic biliary ductal dilation. DAVISON'S SIGN: Negative. RIGHT KIDNEY: Kidney is normal in size. No evidence of renal calculi. No evidence of hydronephrosis. No renal mass or cyst identified. ASCITES: None seen. IMPRESSION: Hepatomegaly and hepatic steatosis. DATA REPOSITORY:
== END 2024-11-16 01:39 ==
LOC: DI 01:20
PROVIDERS: PCP Family Medicine; Visit Provider Family Medicine
DX: R74.01 Elevation of levels of liver transaminase levels (principal); R16.0 Hepatomegaly, not elsewhere classified; K76.0 Fatty (change of) liver, not elsewhere classified
CPT/HCPCS: 76705

== ENCOUNTER 2024-12-22 07:40 | Emergency (ER) | payer OTHER, SELFPAY ==
[2024-12-22 07:46] VITALS: BP 178/91; PULSE 95; RESP 14; TEMP 36.6; O2SAT 96
--- NOTE | 2024-12-22 07:58 | ED.GENADUL_ITS ---
Discharge Plan Disposition Patient Disposition: Home Condition: Stable Discharge Details Clinical Impression: Periorbital cellulitis of left eye Primary Care Provider: Kaleigh Lantigua ED Provider: Isael Alcocer Home Meds and New Rx's Prescriptions: New prednisone 20 mg tablet 60 mg PO DAILY 4 Days Qty: 12 0RF clindamycin HCl 150 mg capsule 450 mg PO TID 7 Days Qty: 63 0RF amoxicillin-pot clavulanate 875-125 mg tablet 1 tab PO BID Qty: 14 0RF Continued acetaminophen 650 mg PO PRN PRN Fiber Gummies 2 gram tablet,chewable 4 g PO DAILY lisinopril 40 mg tablet 40 mg PO DAILY multivitamin Tablet 1 tab PO DAILY naproxen 500 mg tablet 500 mg PO DIRECTED PRN lisdexamfetamine [Vyvanse] 20 mg capsule 20 mg PO DAILY Patient Comments: TAKE 1 CAPSULE BY MOUTH ONCE DAILY FOR 28 DAYS No Action Sublocade 100 mg/0.5 mL solution, extended rel syringe 100 mg subcut QMONTH Patient Comments: Pt reports upto 10 weeks in between injections. Discharge Instructions Additional Instructions: You are being treated for a skin infection. Follow-up with your primary care provider if not improving in 5 days. If you feel significantly more ill or have new symptoms such as changes in vision, fevers or severe pain return to the emergency department for reevaluation. HPI General Mode of arrival: ambulatory . Date/Time Provider Initiated Documentation: 12/22/24 07:49 . Limitations to Documentation: no limitations . Information obtained by: patient . History of Present Illness 49 year old M presents to the emergency department with the chief complaint of left face redness/swelling, described as moderate, Quality is described as aching, Patient started experiencing this day(s) (1) and it has been constant. No relieving factors improve symptom(s), No exacerbating factors reported . Patient notes no other symptoms.. Patient did receive the following treatments prior to arrival, none Related Data Home Medications ?Medication ?Instructions ?Recorded ?Confirmed acetaminophen 650 mg PO PRN PRN 11/19/21 12/22/24 inulin 2 gram chewable tablet 4 g PO DAILY 11/19/21 12/22/24 (Fiber Gummies) lisinopril 40 mg tablet 40 mg PO DAILY 11/19/21 12/22/24 multivitamin 1 tab PO DAILY 11/19/21 12/22/24 naproxen 500 mg tablet 500 mg PO DIRECTED PRN 11/19/21 12/22/24 buprenorphine 100 mg/0.5 mL 100 mg subcut QMONTH 04/01/24 12/22/24 solution,exten.rel.subcutaneous syringe (Sublocade) amoxicillin 875 mg-potassium 1 tab PO BID #14 tabs 12/22/24 clavulanate 125 mg tablet clindamycin HCl 150 mg capsule 450 mg (3 x 150 mg) PO TID 7 days 12/22/24 #63 caps lisdexamfetamine 20 mg capsule 20 mg PO DAILY 12/22/24 12/22/24 (Vyvanse) prednisone 20 mg tablet 60 mg (3 x 20 mg) PO DAILY 4 days 12/22/24 #12 tabs Previous Rx's ?Medication ?Instructions ?Recorded amoxicillin 875 mg-potassium 1 tab PO BID #14 tabs 12/22/24 clavulanate 125 mg tablet clindamycin HCl 150 mg capsule 450 mg (3 x 150 mg) PO TID 7 days 12/22/24 #63 caps prednisone 20 mg tablet 60 mg (3 x 20 mg) PO DAILY 4 days 12/22/24 #12 tabs Allergies Allergy/AdvReac Type Severity Reaction Status Date / Time No Known Allergies Allergy Verified 12/22/24 07:50 General Stated Complaint: Cellulitis SONI: 3 Review of Systems All systems reviewed & are unremarkable except as noted in HPI and below Constitutional Constitutional: Denies chills and Denies fever(s) Eyes Eyes: Denies loss of vision Cardiovascular Cardiovascular: Denies chest pain and Denies dyspnea Respiratory Respiratory: Denies cough and Denies dyspnea Gastrointestinal Gastrointestinal: Denies abdominal pain, Denies nausea and Denies vomiting Integumentary/Breasts Skin/Breast: Reports rash Neurologic Neurologic: Denies loss of vision Exam Const General: no acute distress Orientation: alert HENDE Head: normal to inspection Ears: external ears normal General nose exam: external nose normal Mouth: moist mucous membranes Eyes Visual Haas: normal visual haas by confrontation Alignment and Position: alignment normal Periorbital: periorbital findings normal Conjunctivae: conjunctivae normal Sclera: sclerae normal Pupils: PERRL EOM: EOM intact bilaterally Neck Neck: normal visual inspection Resp Effort & Inspection: normal respiratory effort and able to speak in complete sentences Cardio Rate: regular rate Skin General skin exam: no rashes or lesions noted Neuro General: patient alert and patient oriented x3 Extrem General: normal to inspection Psych Mental Status: mental status grossly normal Course Vital Signs Vital signs: Vital Signs Temperature 36.6 C 12/22/24 07:46 Pulse 95 H 12/22/24 07:46 Respiratory Rate 14 12/22/24 07:46 Blood Pressure 178/91 H 12/22/24 07:46 Pulse Oximetry 96 12/22/24 07:46 Temperature 36.6 C 12/22/24 07:46 Temperature Source Temporal Artery Scan 12/22/24 07:46 Pulse 95 H 12/22/24 07:46 Respiratory Rate 14 12/22/24 07:46 Blood Pressure 178/91 H 12/22/24 07:46 Blood Pressure Position Sitting 12/22/24 07:46 Pulse Oximetry 96 12/22/24 07:46 Oxygen Delivery Method Room Air 12/22/24 07:46 Oxygen Flow Rate 0 12/22/24 07:46 Medical Decision Making 49-year-old male comes in with 1 day of left facial swelling. He states that yesterday he had a scab on the left side of his face that he was picking and trying to squeeze fluid resulting in clear fluid out of it. Today he woke up and his left inferior orbital area of his face was swollen. Has mild erythema in this area with swelling. There is a scab noted to the left zygomatic arch area without any fluctuance or crepitus. He has no pain in the eye itself with 20/20 vision. Pupils are equal and reactive to light with normal-appearing sclera. The supra orbital area is normal in appearance without any swelling. He has full range of motion of his eyes without any pain. I doubt orbital cellulitis based on exam and I suspect periorbital cellulitis. I will initiate clindamycin as he is on lisinopril rather than starting Bactrim, and also start Augmentin and prednisone. He will follow-up with his PCP if not improving and return precautions given. Differential Diagnosis Differential Diagnosis: Orbital cellulitis, periorbital cellulitis, cellulitis Quality:SDOH Health Related Social Needs: No Data to Display PFSH All Active Problems (Updated 12/22/24 @ 08:01 by Isael Alcocer MD) Periorbital cellulitis of left eye (Acute) Essential hypertension (Acute) Cannabis use disorder (Acute) Tobacco user (Acute) Tear of medial meniscus of left knee (Acute) Osteoarthritis of left knee (Acute) MCL sprain of left knee (Acute ~06/2023) Sensorineural hearing loss (SNHL) of both ears (Acute) Dysphagia (Acute) Cellulitis of right hand (Acute) Medical History (Updated 12/22/24 @ 08:01 by Isael Alcocer MD) History of psychiatric disorder Osteoarthritis Follow up Family history of colon cancer Wheezing Left shoulder pain Hepatitis C (~11/21/22) per pt. tx and cured Prediabetes Expiratory wheezing Joint pain Hypertensive disorder Anemia Opioid abuse, in remission (~07/13/23) h/o IVDU, sober since 2007 Surgical History (Updated 08/10/24 @ 07:41 by Courtney Seay) History of esophagogastroduodenoscopy (~03/2023) History of colonoscopy (~07/2024) History of hernia repair H/O foot surgery H/O shoulder surgery Family History Father Colon cancer Hypertension Mother Dementia Hypertension Other Diabetes Social History Smoking/Tobacco Use Status: Current every day Tobacco Type: e-cigarettes Smoking risk assessment performed?: Yes Alcohol Intake: never Drug use: Occasionally Substance use type: former substance user and marijuana Household members: spouse Housing: house Number of Children: 1 What is your relationship status?: Panel score (0-1 are the most socially isolated patients): 1 Do you feel safe at home: Yes Do you feel safe in your relationship?: Yes
[2024-12-22] MEDS: predniSONE 20 MG TAB 60 MG PO (08:21)
[2024-12-22] MEDS: Amoxicillin 875/Clav. 125 TAB PO (08:21)
[2024-12-22] MEDS: Clindamycin 150 MG CAP 450 MG PO (08:21)
== END 2024-12-22 08:21 | disposition home or self-care (01) ==
PROVIDERS: Emergency Provider Emergency Medicine; PCP Family Medicine
DX: L03.213 Periorbital cellulitis (principal)
CPT/HCPCS: 99283; 99284; J7512

== ENCOUNTER 2024-12-23 08:39 | Emergency (ER) | payer OTHER, SELFPAY ==
[2024-12-23 08:40] VITALS: BP 154/91; PULSE 86; RESP 14; TEMP 36.8; O2SAT 97
--- NOTE | 2024-12-23 08:49 | W.ED.GENAD ---
Discharge Plan Disposition Patient Disposition: Home Discharge Details Clinical Impression: Periorbital cellulitis of left eye Primary Care Provider: Kaleigh Lantigua ED Provider: Brandin Lorenzo Home Meds and New Rx's Prescriptions: New mupirocin 2 % ointment 1 applic topical DAILY Qty: 15 0RF Continued acetaminophen 650 mg PO PRN PRN Fiber Gummies 2 gram tablet,chewable 4 g PO DAILY lisinopril 40 mg tablet 40 mg PO DAILY multivitamin Tablet 1 tab PO DAILY naproxen 500 mg tablet 500 mg PO DIRECTED PRN Sublocade 100 mg/0.5 mL solution, extended rel syringe 100 mg subcut QMONTH Patient Comments: Pt reports upto 10 weeks in between injections. lisdexamfetamine [Vyvanse] 20 mg capsule 20 mg PO DAILY Patient Comments: TAKE 1 CAPSULE BY MOUTH ONCE DAILY FOR 28 DAYS prednisone 20 mg tablet 60 mg PO DAILY 4 Days Qty: 12 0RF clindamycin HCl 150 mg capsule 450 mg PO TID 7 Days Qty: 63 0RF amoxicillin-pot clavulanate 875-125 mg tablet 1 tab PO BID Qty: 14 0RF Discharge Instructions Instructions: Preseptal Cellulitis ED Additional Instructions: You are seen in the emergency department for your facial infection. You have no sign of infection deeper down your eye. As we discussed you may ice your face for 20 minutes on 20 minutes off throughout the day today. Please take your antibiotics as directed and use this new topical antibiotic ointment. Please return to the emergency department if you develop fevers, worsening swelling cannot eat or drink or have any other concerns. We are happy to reassess your face at any point in time. Please try to elevate the head of your bed at night. For your pain please take medications as follows: 1. Take acetaminophen (Tylenol), 1,000 mg (two 500 mg tabs) every 6 hours [2. Take ibuprofen (Advil), 400 mg every 6 hours.] Discharge Data Discharge Date/Time-TO BE ENTERED AT DEPARTURE: 12/23/24 09:40 HPI General Date/Time Provider Initiated Documentation: 12/23/24 08:49. HPI Narrative: MDM This is an overall very well-appearing normothermic and not tachycardic 49-year-old male with likely preorbital cellulitis on appropriate outpatient management for which patient will receive discharge with an empiric trial of ongoing expectant outpatient management. I showed the picture of patient's face to Dr. Brooks from the ear nose and throat team. He agreed that patient did not have orbital cellulitis. In the absence of URI symptoms my suspicion for underlying sinus infection was low so I do not feel the patient requires a CT scan of his face. He has no fluctuance to the initial insult just superior to his bateman line on the left side of his face to suggest benefit from I&D. He is not a hemmer automatic and his face is not pruritic so I am not suspicion for poison shannon. No pain on proportion to suggest necrotizing soft tissue infection. No proptosis and eyelids feels soft and equal on palpation so I am not suspicious for orbital cellulitis. Furthermore patient has no visual changes to suggest orbital cellulitis. No vesicles on face to suggest zoster. I considered sepsis however the patient is quite well-appearing and has reassuring vital signs felt that the risks of blood cultures broad-spectrum antibiotics outweigh the benefits. I advised patient that I did not have a clear sense of whether or not patient's symptoms would worsen or improved. Dr. Brooks agreed with Augmentin and agreed with steroids. He will help to follow patient up. Will continue clindamycin for additional strep coverage. I added on Bactroban per recommendation from ENT. I also advised the patient to elevate the head of his bed at night. Patient will continue monitoring his symptoms at home and return if they worsen. History of Present Illness The patient presents for evaluation of an eye infection. He first observed a hard lump on his face near the scab on Friday, initially suspecting it to be an ingrown hair. Despite attempts to extract it, the lump remained. Upon waking the following morning, he noticed significant facial swelling. He sought medical attention yesterday and was prescribed two antibiotics and prednisone. However, after 24 hours of treatment, the condition has worsened, with the infection spreading above his eye and to the bridge of his nose. He reports no fever but has experienced cold chills, necessitating a hot shower last night. He does not have diabetes. He has a history of IV drug use, with the last instance being 8 years ago. He was previously on Sublocade, with the final injection administered in August 2024. He does not consume alcohol daily but admits to smoking. He reports no nausea or vomiting but has felt weak and fatigued over the past few days. He reports no respiratory distress, chest pain, abdominal pain, or presence of sores elsewhere on his body. His eye is red and irritated, but his vision remains unaffected. He reports no heat sensation in the affected area. He has a past medical history of sepsis and cellulitis in his thumb and shoulder, which required shoulder replacement surgery. Patient says that his eyes do not itch. He does not work in [employer]. Exam General: Well-appearing in no acute distress speaking in complete sentences. Head: Normocephalic, atraumatic. Eye:[Pupils equal, round reactive to light.] Extraocular eye movements intact. No conjunctival injection. No scleral icterus. Ear, nose, mouth, throat: Has a superior aspect of the patient's bateman line on his left upper face there is a pinpoint erythematous area with surrounding approximately 2 x 2 cm induration. No significant warmth. No fluctuance. Just inferior to the patient's left eye there is a fluid-filled sac that is not warm nor tender. No fluctuance. Patient's eyes are soft bilaterally. He has no proptosis. His visual acuity as documented by nursing was bilaterally 20/20 and in each his right and left eyes were 20/25. Normal voice, handling secretions normally. Neck: Trachea midline. Cardiovascular: Well-perfused distal extremities. Respiratory: Nonlabored respiration. Gastrointestinal: Nondistended abdomen. Musculoskeletal: No edema. Moving all 4 extremities spontaneously. Skin: Normal for age and race, grossly normal temperature and turgor. No acute rash. Neurologic: Alert and appropriate, no apparent acute deficits. Related Data Home Medications ?Medication ?Instructions ?Recorded ?Confirmed acetaminophen 650 mg PO PRN PRN 11/19/21 12/23/24 inulin 2 gram chewable tablet 4 g PO DAILY 11/19/21 12/23/24 (Fiber Gummies) lisinopril 40 mg tablet 40 mg PO DAILY 11/19/21 12/23/24 multivitamin 1 tab PO DAILY 11/19/21 12/23/24 naproxen 500 mg tablet 500 mg PO DIRECTED PRN 11/19/21 12/23/24 buprenorphine 100 mg/0.5 mL 100 mg subcut QMONTH 04/01/24 12/23/24 solution,exten.rel.subcutaneous syringe (Sublocade) amoxicillin 875 mg-potassium 1 tab PO BID #14 tabs 12/22/24 12/23/24 clavulanate 125 mg tablet clindamycin HCl 150 mg capsule 450 mg (3 x 150 mg) PO TID 7 days 12/22/24 12/23/24 #63 caps lisdexamfetamine 20 mg capsule 20 mg PO DAILY 12/22/24 12/23/24 (Vyvanse) prednisone 20 mg tablet 60 mg (3 x 20 mg) PO DAILY 4 days 12/22/24 12/23/24 #12 tabs mupirocin 2 % topical ointment 1 applic topical DAILY #15 grams 12/23/24 Previous Rx's ?Medication ?Instructions ?Recorded amoxicillin 875 mg-potassium 1 tab PO BID #14 tabs 12/22/24 clavulanate 125 mg tablet clindamycin HCl 150 mg capsule 450 mg (3 x 150 mg) PO TID 7 days 12/22/24 #63 caps prednisone 20 mg tablet 60 mg (3 x 20 mg) PO DAILY 4 days 12/22/24 #12 tabs mupirocin 2 % topical ointment 1 applic topical DAILY #15 grams 12/23/24 Allergies Allergy/AdvReac Type Severity Reaction Status Date / Time No Known Allergies Allergy Verified 12/23/24 08:48 General Stated Complaint: EyeProblem SONI: 4 Course Vital Signs Vital signs: Vital Signs Temperature 36.8 C 12/23/24 08:40 Pulse 86 12/23/24 08:40 Respiratory Rate 14 12/23/24 08:40 Blood Pressure 154/91 H 12/23/24 08:40 Pulse Oximetry 97 12/23/24 08:40 Temperature 36.8 C 12/23/24 08:40 Temperature Source Oral 12/23/24 08:40 Pulse 86 12/23/24 08:40 Respiratory Rate 14 12/23/24 08:40 Blood Pressure 154/91 H 12/23/24 08:40 Blood Pressure Position Sitting 12/23/24 08:40 Pulse Oximetry 97 12/23/24 08:40 Oxygen Delivery Method Room Air 12/23/24 08:40 Oxygen Flow Rate 0 12/23/24 08:40 Pain Level 4 12/23/24 08:40 Comment took naproxen last night 05/29/25 08:40 Medical Decision Making Quality:SDOH Health Related Social Needs: No Data to Display PFSH All Active Problems (Updated 12/23/24 @ 09:30 by Brandin Lorenzo MD) Periorbital cellulitis of left eye (Acute) Essential hypertension (Acute) Cannabis use disorder (Acute) Tobacco user (Acute) Tear of medial meniscus of left knee (Acute) Osteoarthritis of left knee (Acute) MCL sprain of left knee (Acute ~06/2023) Sensorineural hearing loss (SNHL) of both ears (Acute) Dysphagia (Acute) Cellulitis of right hand (Acute) Medical History (Updated 12/23/24 @ 09:30 by Brandin Lorenzo MD) History of psychiatric disorder Osteoarthritis Follow up Family history of colon cancer Wheezing Left shoulder pain Hepatitis C (~11/21/22) per pt. tx and cured Prediabetes Expiratory wheezing Joint pain Hypertensive disorder Anemia Opioid abuse, in remission (~07/13/23) h/o IVDU, sober since 2007 Surgical History (Updated 08/10/24 @ 07:41 by Courtney Seay) History of esophagogastroduodenoscopy (~03/2023) History of colonoscopy (~07/2024) History of hernia repair H/O foot surgery H/O shoulder surgery Family History Father Colon cancer Hypertension Mother Dementia Hypertension Other Diabetes Social History Smoking/Tobacco Use Status: Current every day Tobacco Type: e-cigarettes Smoking risk assessment performed?: Yes Alcohol Intake: never Drug use: Occasionally Substance use type: former substance user and marijuana Household members: spouse Housing: house Number of Children: 1 What is your relationship status?: Panel score (0-1 are the most socially isolated patients): 1 Do you feel safe at home: Yes Do you feel safe in your relationship?: Yes
[2024-12-23 08:50] VITALS: BP 154/91; PULSE 86; RESP 14; TEMP 36.8; O2SAT 97
[2024-12-23 09:40] VITALS: BP 124/93; PULSE 81; RESP 14; O2SAT 97
== END 2024-12-23 09:40 | disposition home or self-care (01) ==
PROVIDERS: Emergency Provider Emergency Medicine; PCP Family Medicine
DX: L03.213 Periorbital cellulitis (principal); I10 Essential (primary) hypertension; F17.290 Nicotine dependence, other tobacco product, uncomplicated
CPT/HCPCS: 99283

== ENCOUNTER 2025-06-16 01:44 | Outpatient (CLI) | payer OTHER, SELFPAY ==
[2025-06-16 10:10] LABS: HCT 45.0 % (40.0-50.0); HGB 15.4 g/dL (13.5-17.5); MCH 30.0 pg (27.0-33.0); MCHC 34.2 % (32.0-36.0); MCV 88 fL (80-95); MPV 11.3 fL (8.0-11.0); Platelet Count 230 10^3/uL (130-400); RBC 5.13 10^6/uL (4.36-5.78); RDW 12.6 % (11.8-14.1); RDW-SD 40.6 fL; WBC 8.02 10^3/uL (4.4-10.8)
[2025-06-16 10:32] LABS: Anion Gap 8.2 mmol/L (3-11); BUN 22 mg/dL (9-23); CO2 27.8 mmol/L (20.0-31.0); Calcium 9.7 mg/dL (8.3-10.6); Chloride 105 mmol/L (98-107); Glucose 84 mg/dL (74-106); Potassium 4.0 mmol/L (3.5-5.1); Sodium 141 mmol/L (136-145)
== END 2025-06-16 01:45 | disposition home or self-care (01) ==
LOC: LBO 01:45 → LBN 09:53
PROVIDERS: PCP Family Medicine; Visit Provider Student in an Organized Health Care Education/Training Program
DX: M17.12 Unilateral primary osteoarthritis, left knee (principal); Z01.818 Encounter for other preprocedural examination
CPT/HCPCS: 80048; 85027

== ENCOUNTER 2025-06-16 11:18 | Outpatient (CLI) | payer OTHER, SELFPAY ==
--- NOTE | 2025-06-16 08:15 | DI.RAD_ITS ---
Exam(s) XR KNEE LT 1V XR STANDING ALIGNMENT EXAM: XR STANDING ALIGNMENT CLINICAL HISTORY: OA L KNEE. TECHNIQUE: 2D digital imaging was performed. Standing AP views were performed from the pelvis through the ankles. COMPARISON: CR,RF XR KNEE COMPLETE MIN 4V LT from 07/24/2023 CR XR KNEE LT 1V from 06/16/2025 FINDINGS: BONES: No acute fracture is present. No bony destructive lesion is seen. Leg length discrepancy: No significant overall leg length discrepancy. JOINTS: Knees: There are severe degenerative changes of the patellofemoral joint with [id number] appearance. There abnormal adjacent bony densities. There is moderate to severe narrowing of the medial femoral tibial joint space causing varus angulation. Right knee is unremarkable. The ankle joints are unremarkable. The hip joints are unremarkable. SOFT TISSUE: Normal. IMPRESSION: Severe degenerative changes of the left patellofemoral joint and moderate to severe degenerative changes of the medial femoral tibial joint.. No significant leg length discrepancy. DATA REPOSITORY: RADIATION DOSE DELIVERED:
--- NOTE | 2025-06-16 08:15 | DI.RAD_ITS ---
Exam(s) XR KNEE LT 1V XR STANDING ALIGNMENT EXAM: XR STANDING ALIGNMENT CLINICAL HISTORY: OA L KNEE. TECHNIQUE: 2D digital imaging was performed. Standing AP views were performed from the pelvis through the ankles. COMPARISON: CR,RF XR KNEE COMPLETE MIN 4V LT from 07/24/2023 CR XR KNEE LT 1V from 06/16/2025 FINDINGS: BONES: No acute fracture is present. No bony destructive lesion is seen. Leg length discrepancy: No significant overall leg length discrepancy. JOINTS: Knees: There are severe degenerative changes of the patellofemoral joint with [id number] appearance. There abnormal adjacent bony densities. There is moderate to severe narrowing of the medial femoral tibial joint space causing varus angulation. Right knee is unremarkable. The ankle joints are unremarkable. The hip joints are unremarkable. SOFT TISSUE: Normal. IMPRESSION: Severe degenerative changes of the left patellofemoral joint and moderate to severe degenerative changes of the medial femoral tibial joint.. No significant leg length discrepancy. DATA REPOSITORY: RADIATION DOSE DELIVERED:
== END 2025-06-16 11:19 | disposition home or self-care (01) ==
LOC: DIORS 11:18
PROVIDERS: PCP Family Medicine; Visit Provider Physician Assistant
DX: M17.12 Unilateral primary osteoarthritis, left knee (principal); M22.2X2 Patellofemoral disorders, left knee; M17.0 Bilateral primary osteoarthritis of knee
CPT/HCPCS: 73560; 77073

== ENCOUNTER 2025-06-29 06:56 | Day surgery (SDC) | payer OTHER, SELFPAY ==
[2025-06-29] VITALS (18 sets, daily range): BP systolic 93–131; BP diastolic 45–84; PULSE 62–80; RESP 13–23; TEMP 36.1–36.5; O2SAT 93–97; BMI 34.0
--- NOTE | 2025-06-29 07:22 | PDOC.DSDIS_ITS ---
Date of service: 06/29/25 Discharge Plan Disposition Patient Disposition: Home Condition: Good Discharge Details Reason For Visit: L TKR Attending Provider: Kevin Redd Primary Care Provider: Kaleigh Lantigua Home Meds and New Rx's Prescriptions: New celecoxib 200 mg capsule 200 mg PO BID Qty: 60 0RF aspirin 81 mg tablet,delayed release (DR/EC) 81 mg PO BID Qty: 60 0RF acetaminophen 500 mg tablet 1,000 mg PO TID Qty: 90 3RF pantoprazole 40 mg tablet,delayed release (DR/EC) 40 mg PO DAILY Qty: 14 0RF dexamethasone 4 mg tablet 4 mg PO DAILY Qty: 2 0RF docusate sodium 100 mg capsule 100 mg PO BID PRNQty: 28 0RF gabapentin 300 mg capsule 300 mg PO QHS Qty: 14 0RF oxycodone 5 mg tablet 5 mg PO Q4H PRNQty: 18 0RF Continued zolpidem [Ambien] 10 mg tablet 10 mg PO QHS PRN fluticasone furoate-vilanterol [Breo Ellipta] 100-25 mcg/dose blister with device 2 inh inhalation BID Fiber Gummies 2 gram tablet,chewable 4 g PO DAILY lisinopril 40 mg tablet 40 mg PO DAILY multivitamin Tablet 1 tab PO DAILY mupirocin 2 % ointment 1 applic topical DAILY Qty: 15 0RF Discontinued acetaminophen 650 mg PO PRN PRN naproxen 500 mg tablet 500 mg PO DIRECTED PRN Discharge Instructions Additional Instructions: Total Knee Discharge Instructions Activity: The most important activity is to walk and to work on gentle motion (both flexion and extension). You should try to take short walks a few times a day. It is important that when resting you work on keeping the knee straight. Avoid putting a pillow behind the knee as this will encourage flexion. Work on range of motion exercises as provided by Physical Therapy. - Start outpatient physical therapy within 2 weeks. - You should wear the CANDE hose on both legs for 2 weeks. You may remove these at night. You may also use any compression sock in place of the CANDE hose. - Utilize [employer] to review exercises, see videos on exercises and obtain basic information pertaining to your surgery and your recovery. Dressing: Remove the Mike wrap by 2 days after your surgery and put on the CANDE stocking given to you from the hospital. Keep the surgical dressing (underneath the MIKE wrap) in place for at least one week. After the first week it may be removed and replaced with light gauze and tape or nothing. The wound and dressing may get wet after 3 days but avoid soaking the dressing or otherwise it will need to be changed. Many people prefer covering the dressing with cling wrap (saran wrap) to minimize it from getting soaked. If it gets wet, just pat dry. If it starts to peel off then it will need to be changed. Medications: - You should take Tylenol and anti-inflammatory Celebrex as your primary pain control medications. If the Celebrex is too expensive or not covered, please call the office for another alternative (Advil/Ibuprofen or Naproxen/Aleve) - You have been prescribed a stronger pain medication Oxycodone for breakthrough pain, take as needed as prescribed. - You have also been prescribed a stomach acid reduction agent Pantoprozole to help reduce stomach acid and reflux. - You have been prescribed Gabapentin to take at night for restlessness and nerve pain. - You will be taking Aspirin 81mg twice a day for DVT prevention unless instructed otherwise. - You have also been prescribed Decadron to take to control post-operative nausea and pain. You will start this tomorrow. - If you have constipation you should take Colace or Miralax (both [id number]). It takes most people 3-4 days to have a bowel movement. Follow-up: 2 weeks If you have any acute concerns or questions, please do not hesitate to contact the office at [phone]. You may contact Dr. Redd with any questions after hours through the hospital at [phone] or on his cell phone at [phone]. Stand Alone Forms: Anesthesia Discharge Inst., Anes.Nerve Block Instructions, Mio Holcomb (DSU), Portal Information Referrals: Kevin Redd MD [ [facility] STAFF PHYSICIAN, Orthopaedic Surgical] - 07/14/25 9:45 am Equipment/Supplies: Walker Activity:: Activity as Tolerated Shower/Bathe:: 72 hours Diet:: As Tolerated Discharge Orders Discharge Orders: Discharge Order (Routine); Ordered 06/29/25 Ordered By: Giovanny Severino DS: Diagnosis Discharge Diagnosis (1) Osteoarthritis of left knee: Status: Acute
[2025-06-29] MEDS: Gabapentin 300 MG CAP PO (07:49)
[2025-06-29] MEDS: Celecoxib 200 MG CAP 400 MG PO (07:50)
[2025-06-29] MEDS: Acetaminophen 500 MG TAB 1000 MG PO (07:50)
[2025-06-29] MEDS: Lactated Ringers 1,000 ML 80 ML IV (08:15)
--- NOTE | 2025-06-29 08:47 | W.ANESPRE ---
General Info Date of Service Date Performed: 06/29/25 Height: 5 ft 10 in Weight: 107.7 kg Body Mass Index (BMI): 34.0 Surgical Procedure: Operation Date: 06/29/25 09:25 Proposed Procedure Side Surgeon p Knee Total Arthroplasty Left Kevin Redd MD Actual Procedure Side Surgeon p Knee Total Arthroplasty Left Kevin Redd MD Pre-Op Diagnosis Post-Op Diagnosis L TKR Meds Allergies and Home Medications Allergies Allergy/AdvReac Type Severity Reaction Status Date / Time No Known Allergies Allergy Verified 06/29/25 07:46 Home Medication ?Medication ?Instructions ?Recorded inulin 2 gram chewable tablet 4 g PO DAILY 11/19/21 (Fiber Gummies) lisinopril 40 mg tablet 40 mg PO DAILY 11/19/21 multivitamin 1 tab PO DAILY 11/19/21 mupirocin 2 % topical ointment 1 applic topical DAILY #15 grams 12/23/24 zolpidem 10 mg tablet (Ambien) 10 mg PO QHS PRN 03/24/25 fluticasone furoate 100 2 inh inhalation BID 06/16/25 mcg-vilanterol 25 mcg/dose inhalation powder (Breo Ellipta) acetaminophen 500 mg tablet 1,000 mg (2 x 500 mg) PO TID #90 06/29/25 tabs albuterol sulfate 90 mcg/actuation inhalation 06/29/25 aerosol inhaler aspirin 81 mg tablet,delayed 81 mg PO BID #60 tabs 06/29/25 release celecoxib 200 mg capsule 200 mg PO BID #60 caps 06/29/25 dexamethasone 4 mg tablet 4 mg PO DAILY #2 tabs 06/29/25 docusate sodium 100 mg capsule 100 mg PO BID PRN #28 caps 06/29/25 gabapentin 300 mg capsule 300 mg PO QHS #14 caps 06/29/25 nicotine 21 mg/24 hr daily 06/29/25 transdermal patch oxycodone 5 mg tablet 5 mg PO Q4H PRN #18 tabs 06/29/25 pantoprazole 40 mg tablet,delayed 40 mg PO DAILY #14 tabs 06/29/25 release Current Visit Medications: Current Medications Generic Name Dose Route Start Last Admin Trade Name Freq PRN Reason Stop Dose Admin Acetaminophen 1,000 mg 06/29/25 06:00 06/29/25 07:50 Acetaminophen 500 Mg Tab PO 06/29/25 23:59 1,000 mg PREOP JEANINE Administration Acetaminophen 1,000 mg 06/29/25 07:20 Acetaminophen 500 Mg Tab PO 07/29/25 07:19 TID PRN PRN Analgesia Celecoxib 400 mg 06/29/25 06:00 06/29/25 07:50 Celecoxib 200 Mg Cap PO 06/29/25 23:59 400 mg PREOP JEANINE Administration Docusate Sodium 100 mg 06/29/25 07:20 Docusate Sodium 100 Mg Cap PO 07/29/25 07:19 BID PRN PRN Constipation Ringer's Solution 1,000 mls @ 80 mls/hr 06/29/25 06:00 06/29/25 08:15 IV 06/29/25 23:59 80 mls/hr INFUSION JEANINE Administration Cefazolin Sodium/Dextrose 2 gm in 50 mls @ 100 mls/hr 06/29/25 06:00 Ancef Duplex IVPB 06/29/25 23:59 PREOP JEANINE Tranexamic Acid/Sodium Chloride 1,000 mg in 100 mls @ 600 mls/hr 06/29/25 06:00 IVPB 06/29/25 23:59 PREOP JEANINE Ondansetron HCl 4 mg 06/29/25 07:20 Ondansetron 4 Mg/2 Ml Vial IVP 07/29/25 07:19 Q6H PRN PRN Nausea Oxycodone HCl 0 mg 06/29/25 07:20 Oxycodone 5 Mg Tab PO 07/29/25 07:19 Q3H PRN PRN Pain Polyethylene Glycol 17 gm 06/29/25 07:20 Polyethylene Glycol 3350 17 Gm Packet PO 07/29/25 07:19 BID PRN PRN Constipation Sodium Chloride 0 ml 06/29/25 06:00 Normal Saline Flush 10 Ml Syr IV 06/29/25 23:59 PRN PRN Sodium Chloride 0 ml 06/29/25 06:00 Normal Saline 10 Ml Vial IJ 06/29/25 23:59 DIRECTED PRN Sterile Water 0 ml 06/29/25 06:00 Water,Injection,Sterile 10 Ml Vial IJ 06/29/25 23:59 DIRECTED PRN PFSH Active Problems Active Problems: Problem Status Onset Code Essential hypertension Acute I10 Cannabis use disorder Acute F12.90 Tobacco user Acute Z72.0 Tear of medial meniscus of left knee Acute S83.242A Osteoarthritis of left knee Acute M17.12 MCL sprain of left knee Acute ~06/2023 S83.412A Cellulitis of right hand Acute L03.113 Dysphagia Acute R13.10 Sensorineural hearing loss (SNHL) of both ears Acute H90.3 Medical History Medical History History of psychiatric disorder Osteoarthritis Follow up Family history of colon cancer Wheezing Left shoulder pain Hepatitis C (~11/21/22) per pt. tx and cured Prediabetes Expiratory wheezing Joint pain Hypertensive disorder Anemia Opioid abuse, in remission (~07/13/23) h/o IVDU, sober since 2022 Surgical History Surgical History History of esophagogastroduodenoscopy (~03/2023) History of colonoscopy (~07/2024) History of hernia repair H/O foot surgery H/O shoulder surgery Tobacco Smoking/Tobacco Use Status: Current every day Tobacco Type: e-cigarettes Alcohol Alcohol Intake: never Substance Use Substance use: Occasionally Substance use type: former substance user and marijuana Details: Last T-14 Vital Signs and Lab Results Vital Signs Most Recent Vital Signs in EMR: Most Recent Vital Signs Temp Pulse Resp BP Pulse Ox 36.5 C 80 16 131/82 97 06/29/25 07:15 06/29/25 07:15 06/29/25 07:15 06/29/25 07:15 06/29/25 07:15 Lab Results Complete Blood Count: WBC, (4.4-10.8) 8.02 10^3/uL 06/16/25, 09:15 RBC, (4.36-5.78) 5.13 10^6/uL 06/16/25, 09:15 Hgb, (13.5-17.5) 15.4 g/dL 06/16/25, 09:15 Hct, (40.0-50.0) 45.0 % 06/16/25, 09:15 Plt Count, (130-400) 230 10^3/uL 06/16/25, 09:15 Complete Metabolic Panel: Sodium, (136-145) 141 mmol/L 06/16/25, 09:15 Potassium, (3.5-5.1) 4.0 mmol/L 06/16/25, 09:15 Chloride, (98-107) 105 mmol/L 06/16/25, 09:15 Carbon Dioxide, (20.0-31.0) 27.8 mmol/L 06/16/25, 09:15 BUN, (9-23) 22 mg/dL 06/16/25, 09:15 Creatinine, (0.73-1.18) 0.6 mg/dL L 06/16/25, 09:15 Est GFR (CKD-EPI 2020), (mL/min/1.73m2) 136.60 06/16/25, 09:15 Calcium, (8.3-10.6) 9.7 mg/dL 06/16/25, 09:15 Glucose, (74-106) 84 mg/dL 06/16/25, 09:15 Anesthesia Assessment and Plan Anesthesia History Personal History: No History of Anesthesia Complications Family History: No Family History of Anesthesia Complications Exercise Tolerance Exercise Tolerance: Metabolic Equivalents>4 Pertinent Negatives Pertinent Negatives: No Symptoms of GERD, No Major Cardiovascular Symptoms or Complaints and No Major Pulmonary Symptoms or Complaints Cardiac & Pulmonary Exam Cardiac Exam: Normal S1/S2 Heart Sounds Pulmonary Exam: Clear Bilateral Breath Sounds Cardiac and Pulmonary Comment:: Daily Symbicort, occ wheeze, smoker Implantable Cardiac Device Does patient have a Pacemaker or an ICD?: No Airway Exam Known Difficult Airway: No Mallampati Class: 2 Mouth Opening: Normal (> 3cm) Thyromental Distance: Greater than 3 cm Neck Range of Motion: Full ROM Neck Circumference: Normal Teeth Condition: Generalized Poor Dentition (few teeth on bottom, none loose per pt. ) and Removable Dentures/Plates Upper ASA Classification ASA Score: ASA 2 Emergency Case?: No NPO Status NPO Status: NPO Clears >2 hours, Solids >8 hours Anesthesia Plan Resuscitation Status: Full Code Anesthesia Technique: Spinal Anesthesia Airway Planned: Natural Airway Pain Management: Surgeon and patient request nerve block Monitors Used: Standard Monitors Preoperative Comments:: Plan today spinal and block Last Anesthetic: 49 y/o male with history of HTN and dysphagia presents for colonoscopy screening. He states his last Colonoscopy was 3-4 years ago at [facility], which he believes was unremarkable. He has a family history of colon cancer in his father.
[2025-06-29] MEDS: ceFAZolin 2 GM/50 ML BAG IVPB (08:55)
--- NOTE | 2025-06-29 09:09 | ROE_ITS ---
Operative Note Operative Note PRE-OP DIAGNOSIS: Left Knee Osteoarthritis POST-OP DIAGNOSIS: same PROCEDURE: Left Total Knee Replacement SURGEON: Kevin Redd ENVELOPE CUTTER: Luma Severino ANESTHESIA TYPE: Spinal Refer to Anesthesia Record ESTIMATED BLOOD LOSS: 150 PATHOLOGY: none sent TOURNIQUET TIME: 0 COMPLICATIONS: None Patient was transported to: PACU Patient's condition: stable Implants: 1. Depuy Attune Cementless Cruciate Retaining Femoral Component, Size 6 2. Depuy Attune Cementless Fixed Bearing Tibial Component, Size 7 3. Depuy Attune 6x6mm CR/FB Poly 4. Depuy Attune Patellar Component, Size 32mm Indications: I have seen Kerwin in clinic for symptoms of knee arthritis, confirmed with radiographic findings. He has exhausted nonoperative methods and was having significant limitations in daily function and desired better function and less pain. I discussed the technical details of a knee replacement. I explained the risks of the procedure to include, but not limited to, bleeding, infection, pain, stiffness, fracture, damage to nerves and vessels, damage to muscles and tendons, loosening, need for repeat procedure, blood clot and cardiopulmonary demise. Despite these risks, Kerwin elected to proceed. Findings: There was significant signs of arthritis throughout the knee. Procedure Description: Kerwin was greeted in the preoperative holding area where the correct side was identified and marked. The consent was reviewed with the patient and signed. The history and physical was updated. All questions were answered. Preoperative medications were administered: Acetaminophen 1000mg, Celebrex 400mg, and Gabapentin 300mg. An adductor canal block was then administered by the anesthesia team in the DSU. Kerwin was taken back to the operating room. A spinal anesthestic was then administered. The patient was placed into the supine position on the operating room table. Posts were placed for positioning during the procedure. All bony prominences were well padded. Prophylactic antibiotics in the form of Cefazolin were administered. 1g of Tranxemic Acid was given intravenously within 30 minutes of incision. The left leg was then prepped with Chloraprep and draped in a standard fashion with impervious stockinette. A second prep with Chloraprep was performed prior to application of Iodine impregnated skin protection. A timeout to confirm correct identity, side and site, procedure, allergies, anesthesia, and medical concerns was performed. With the knee in some flexion, a midline incision was made overlying the knee. Full thickness skin flaps were raised once the extensor mechanism was encountered. These were raised medially and laterally. Any bleeding was controlled with electrocautery. Once the extensor mechanism was fully exposed, a medial parapatellar arthrotomy was performed in a flexed position. All bleeding from the arthrotomy and the geniculate arteries was coagulated. A medial subperiosteal peel was performed with electrocautery to the midcoronal plane. The fat pad was removed while keeping the patellar tendon protected. The anterior distal femur synovium was removed for later visualization. The ACL and PCL were resected and the anterior horn of the lateral meniscus was transected. The knee was then flexed with the patella everted. Large osteophytes from the tibia were removed. Large osteophytes from the femur were removed. Using a step drill, and based on preoperative templating, the femoral canal was entered. This was done with a step drill without any difficulty. The intramedullary distal femoral cut guide was inserted, set to a 6 degree valgus cut and 9mm cut thickness. The distal femoral cut guide was then held in position and pinned. With the soft tissues protected, the distal cut was performed. This was passed over a few times to ensure a planar cut. I then turned attention to the tibia. The extramedullary guide was placed onto the leg. The distal aspect was slid medial to adjust for position of center of ankle and stay in line with shaft of the tibia. Approximately 5 degrees of posterior slope was kept in the proximal cutting guide. The center of the guide was aligned with the PCL. The stylus was used to assess cut thickness. The medial side, most involved side, was set for a 6mm cut, corresponding to 9mm laterally. This was then held in position and pinned into place with 2 additional pins and a cross pin for stability. The medial and lateral collateral ligaments were protected and the cut was performed. With this completed, it was assessed and noted to be of appropriate dimensions. The guide was removed. A spacer block was inserted and the knee was brought into extension. The 6mm spacer block provided full extension, without hyperextension and with stability of both the medial and lateral collateral ligaments was assessed. The pins from the femur and the tibia were then removed. The distal femur was then sized. The anterior stylus was placed onto the lateral ridge of the anterior femur. This indicated a size 6 femur. The external rotation of the guide was adjusted to 3 degrees to match the epicondylar axis, perpendicular to Bluford?s line. The 4-in-1 cutting guide was the placed. The posterior medial femur cut was evaluated and appeared of good thickness. The spacer block was inserted underneath the cutting guide and stability was confirmed in 90 degrees of flexion. An brina wing was used to confirm appropriate position of the anterior cut to avoid notching. This cutting guide was ensured to be flush on the cut surface and then pinned into place with headed pins. While protecting the soft tissues, quad tendon, and collateral ligaments, the anterior and posterior cuts were performed with a saw. The central two pins were removed and the posterior and anterior chamfers were cut next. The notch-cutting guide was placed. This was pinned to lateralize the femoral component as much as possible while keeping it flush on the cut surface. This was then pinned into position. A reciprocating saw was used to make the notch cut. A rasp smoothed the cut surfaces. The medial and lateral menisci were removed. A trial femoral component was then inserted, impacted down to the cut surfaces, and the lug holes were drilled. A provisional trial tibial component was placed and the knee was brought through range of motion. There was noted to be excellent extension and flexion. There was no significant instability. The patella was tracking without thumbs. A size 6mm polyethylene component provided the best range of motion and stability with less than 2mm gapping with medial and lateral stress and full extension without significant hyperextension. The tibial cut surface was fully exposed. The tibia was then sized as a 7. The tibia had been previously marked during trialing to correspond to the center of the tibial component to help with rotation. The trial was aligned to this luma, approximately rotated to the medial 1/3rd of the tibial tubercle. The trial was pinned into place. The tibia was prepared with a reamer and a keel punch and lug holes. The knee was then brought into extension and the patella was measured as 21mm at the apex. There was significant deformity the patella. There is a loose lateral fragment as well as multiple smaller loose fragments around the periphery of the superolateral portion of the patella. These were excised in the soft tissue leaving 1 primary patellar component. There was also deformity of this patellar piece. Using the patellar clamp and cut guide, this was resected to a flat surface with at least 13mm of thickness remaining although the actual size of the patella is quite small. The size 32mm patella fit the best. This was oriented and then clamped into position. The lugs were drilled although was unable to completely drill the most lateral peg due to the convexity and shape and thickness of the patella.. The trial components were removed. The final components were opened on the back table. The periosteal and capsular tissues, especially posteriorly, around the knee were then systematically injected with a periarticular cocktail consisting of 246mg of Ropivacaine, 0.5mg of Epinephrine, 0.08mg of Clonidine, and 30mg of Ketorolac, diluted to 100cc. On the back table, with the implants opened. The cement was mixed. One batch of high viscosity cement was prepared with vacuum assistance. After the cement was ready a small amount was placed on the cut surface of the patella and the patellar button was clamped into position and held. The cementless knee components were placed. Starting with the tibial component, the tibia was subluxed anteriorly and the lug holes of the component were lined up. The tibia was then impacted with an impactor and mallet until the tibial component was in contact with the tibia. Then, the femoral component was inserted. The lug holes were aligned and the component was impacted into position. The final polyethylene component was inserted. The knee was irrigated with Surgiphor Betadine solution. This was allowed to sit in the knee for 3 minutes and then it was irrigated out with saline. After the cement had finally cured, approximately 15min, the clamp was removed from the patella and the knee was taken through range of motion. The patella was tracking with a no-thumbs technique. A complete synovectomy was performed around the periphery of the patella. The capsule was then reapproximated with a No. 1 Vicryl at multiple locations. The capsule was finally closed with a No. 2 Stratafix, barbed suture. Deep tissues were then reapproximated with 0 Vicryl and 2-0 Vicryl. The skin was closed with a running 3-0 Monocryl in a subcuticular fashion. This was reinforced with skin glue. A Mepilex silver dressing was applied along with a [id number] TEE wrap. A CryoCuff was applied. Kerwin was transferred to the hospital bed without difficulty an suffering no apparent complication. Kerwin has a good prognosis. Physical therapy will start today and without restrictions, weight-bearing as tolerated. Aspirin 81mg BID will be used for DVT prophylaxis. Date of Procedure: 06/29/25
[2025-06-29] MEDS: TRANEXAMIC ACID/SOD. CHL. 1,000 MG/100 ML BAG 600 MG IVPB (09:12)
--- NOTE | 2025-06-29 09:33 | W.ANESNERVE ---
Nerve Block Single Injection Procedure Date and Time Date Performed: 06/29/25 Procedure Start: 08:37 Location Where Procedure Performed Procedure Location: Day Surgery Unit Reason Performed: Postoperative Analgesia Requesting Provider: Kevin Redd Timeout Performed Timeout Performed: Yes Monitoring Used ECG, Blood Pressure, SpO2 and See EMR for corresponding vital signs Sterility Sterility: Hand Hygiene, Surgical Cap, Surgical Mask, Sterile Gloves and Chlorhexidine Sedation Given During Procedure Sedation Given (Indicate Dose Given): Versed IV Dose:: 2 mg and Precedex IV Dose:: 8 mcg Patient Mental Status Patient Mental Status: Sedate with meaningful communication Nerve Block 1st Nerve Block: Laterality: Left Block Type: Adductor Canal Ultrasound Image Saved?: Yes Needle / Catheter Used: 100mm SonoPlex II Local Anesthetic Bolus (Indicate Dose Given): Injected in 3-5ml increments after negative blood aspiration, Bupivacaine 0.25% Dose:: 10 ml and Exparel Dose:: 10 ml Additives (Indicate Dose Given): None Ultrasound: Sterile probe cover and gel used Nerve Stimulator: Supplement to Ultrasound use, Expected parasthesia or motor response elicited and No twitch or parasthesia noted < 0.5 mA Paresthesia: None Procedure Tolerated: No Complications and Patient tolerated well Procedure Outcome: Successful Performed By: Maik Scott 2nd Nerve Block: Laterality: Left Block Type: Other (Antrerior Femoral Cutaneous Nerves) Ultrasound Image Saved?: Yes Needle / Catheter Used: 100mm SonoPlex II Local Anesthetic Bolus (Indicate Dose Given): Bupivacaine 0.25% Dose:: 10 ml Additives (Indicate Dose Given): None Ultrasound: Sterile probe cover and gel used Nerve Stimulator: Supplement to Ultrasound use, Expected parasthesia or motor response elicited and No twitch or parasthesia noted < 0.5 mA Paresthesia: None Procedure Tolerated: No Complications and Patient tolerated well Procedure Outcome: Successful Performed By: Maik Scott
[2025-06-29] MEDS: ROPIvacaine/EPI/CLONIDINE/KET 50 ML SYRINGE IJ (10:15)
[2025-06-29] MEDS: fentaNYL 100 MCG/2 ML VIAL IVP ×2 (11:01→11:15)
--- NOTE | 2025-06-29 11:07 | W.ANESPRE ---
General Info Date of Service Date Performed: 06/29/25 Height: 5 ft 10 in Weight: 107.7 kg Body Mass Index (BMI): 34.0 Surgical Procedure: Operation Date: 06/29/25 09:25 Proposed Procedure Side Surgeon p Knee Total Arthroplasty Left Kevin Redd MD Actual Procedure Side Surgeon p Knee Total Arthroplasty Left Kevin Redd MD Pre-Op Diagnosis Post-Op Diagnosis L TKR Meds Allergies and Home Medications Allergies Allergy/AdvReac Type Severity Reaction Status Date / Time No Known Allergies Allergy Verified 06/29/25 07:46 Home Medication ?Medication ?Instructions ?Recorded inulin 2 gram chewable tablet 4 g PO DAILY 11/19/21 (Fiber Gummies) lisinopril 40 mg tablet 40 mg PO DAILY 11/19/21 multivitamin 1 tab PO DAILY 11/19/21 mupirocin 2 % topical ointment 1 applic topical DAILY #15 grams 12/23/24 zolpidem 10 mg tablet (Ambien) 10 mg PO QHS PRN 03/24/25 fluticasone furoate 100 2 inh inhalation BID 06/16/25 mcg-vilanterol 25 mcg/dose inhalation powder (Breo Ellipta) acetaminophen 500 mg tablet 1,000 mg (2 x 500 mg) PO TID #90 06/29/25 tabs albuterol sulfate 90 mcg/actuation inhalation 06/29/25 aerosol inhaler aspirin 81 mg tablet,delayed 81 mg PO BID #60 tabs 06/29/25 release celecoxib 200 mg capsule 200 mg PO BID #60 caps 06/29/25 dexamethasone 4 mg tablet 4 mg PO DAILY #2 tabs 06/29/25 docusate sodium 100 mg capsule 100 mg PO BID PRN #28 caps 06/29/25 gabapentin 300 mg capsule 300 mg PO QHS #14 caps 06/29/25 nicotine 21 mg/24 hr daily 06/29/25 transdermal patch oxycodone 5 mg tablet 5 mg PO Q4H PRN #18 tabs 06/29/25 pantoprazole 40 mg tablet,delayed 40 mg PO DAILY #14 tabs 06/29/25 release Current Visit Medications: Current Medications Generic Name Dose Route Start Last Admin Trade Name Freq PRN Reason Stop Dose Admin Acetaminophen 1,000 mg 06/29/25 06:00 06/29/25 07:50 Acetaminophen 500 Mg Tab PO 06/29/25 23:59 1,000 mg PREOP JEANINE Administration Acetaminophen 1,000 mg 06/29/25 07:20 Acetaminophen 500 Mg Tab PO 07/29/25 07:19 TID PRN PRN Analgesia Albuterol/Ipratropium 3 ml 06/29/25 09:31 Albuterol/Ipratropium 3 Ml Upd Vial UPD 07/29/25 09:30 .X1 DOSE PRN Celecoxib 400 mg 06/29/25 06:00 06/29/25 07:50 Celecoxib 200 Mg Cap PO 06/29/25 23:59 400 mg PREOP JEANINE Administration Docusate Sodium 100 mg 06/29/25 07:20 Docusate Sodium 100 Mg Cap PO 07/29/25 07:19 BID PRN PRN Constipation Droperidol 0.625 mg 06/29/25 09:31 Droperidol 5 Mg/2 Ml Vial IVP 07/29/25 09:30 DIRECTED PRN Ephedrine Sulfate 0 mg 06/29/25 09:31 Ephedrine 25 Mg/5 Ml Syringe IVP 07/29/25 09:30 DIRECTED PRN Fentanyl 0 mcg 06/29/25 09:31 06/29/25 11:01 Fentanyl 100 Mcg/2 Ml Vial IVP 07/29/25 09:30 50 mcg DIRECTED PRN Administration Hydromorphone HCl 0 mg 06/29/25 09:31 Hydromorphone 2 Mg/Ml Syr IVP 07/29/25 09:30 DIRECTED PRN Ringer's Solution 1,000 mls @ 80 mls/hr 06/29/25 06:00 06/29/25 10:37 IV 06/29/25 23:59 80 mls/hr INFUSION JEANINE Infusion Cefazolin Sodium/Dextrose 2 gm in 50 mls @ 100 mls/hr 06/29/25 06:00 06/29/25 09:25 Ancef Duplex IVPB 06/29/25 23:59 Infused PREOP JEANINE Infusion Tranexamic Acid/Sodium Chloride 1,000 mg in 100 mls @ 600 mls/hr 06/29/25 06:00 06/29/25 09:22 IVPB 06/29/25 23:59 Infused PREOP JEANINE Infusion Naloxone HCl 0 mg 06/29/25 09:31 Naloxone 0.4 Mg/Ml Vial IVP 07/29/25 09:30 PRN PRN Ondansetron HCl 4 mg 06/29/25 07:20 Ondansetron 4 Mg/2 Ml Vial IVP 07/29/25 07:19 Q6H PRN PRN Nausea Oxycodone HCl 0 mg 06/29/25 07:20 Oxycodone 5 Mg Tab PO 07/29/25 07:19 Q3H PRN PRN Pain Polyethylene Glycol 17 gm 06/29/25 07:20 Polyethylene Glycol 3350 17 Gm Packet PO 07/29/25 07:19 BID PRN PRN Constipation Sodium Chloride 0 ml 06/29/25 06:00 Normal Saline Flush 10 Ml Syr IV 06/29/25 23:59 PRN PRN Sodium Chloride 0 ml 06/29/25 06:00 Normal Saline 10 Ml Vial IJ 06/29/25 23:59 DIRECTED PRN Sterile Water 0 ml 06/29/25 06:00 Water,Injection,Sterile 10 Ml Vial IJ 06/29/25 23:59 DIRECTED PRN PFSH Active Problems Active Problems: Problem Status Onset Code Essential hypertension Acute I10 Cannabis use disorder Acute F12.90 Tobacco user Acute Z72.0 Tear of medial meniscus of left knee Acute S83.242A Osteoarthritis of left knee Acute M17.12 MCL sprain of left knee Acute ~06/2023 S83.412A Cellulitis of right hand Acute L03.113 Dysphagia Acute R13.10 Sensorineural hearing loss (SNHL) of both ears Acute H90.3 Medical History Medical History History of psychiatric disorder Osteoarthritis Follow up Family history of colon cancer Wheezing Left shoulder pain Hepatitis C (~11/21/22) per pt. tx and cured Prediabetes Expiratory wheezing Joint pain Hypertensive disorder Anemia Opioid abuse, in remission (~07/13/23) h/o IVDU, sober since 2022 Surgical History Surgical History History of esophagogastroduodenoscopy (~03/2023) History of colonoscopy (~07/2024) History of hernia repair H/O foot surgery H/O shoulder surgery Tobacco Smoking/Tobacco Use Status: Current every day Tobacco Type: e-cigarettes Alcohol Alcohol Intake: never Substance Use Substance use: Occasionally Substance use type: former substance user and marijuana Details: Last T-14 Vital Signs and Lab Results Vital Signs Most Recent Vital Signs in EMR: Most Recent Vital Signs Temp Pulse Resp BP Pulse Ox 36.3 C L 73 23 106/76 95 06/29/25 08:34 06/29/25 08:34 06/29/25 08:34 06/29/25 08:34 06/29/25 08:34 Lab Results Complete Blood Count: WBC, (4.4-10.8) 8.02 10^3/uL 06/16/25, 09:15 RBC, (4.36-5.78) 5.13 10^6/uL 06/16/25, 09:15 Hgb, (13.5-17.5) 15.4 g/dL 06/16/25, 09:15 Hct, (40.0-50.0) 45.0 % 06/16/25, 09:15 Plt Count, (130-400) 230 10^3/uL 06/16/25, 09:15 Complete Metabolic Panel: Sodium, (136-145) 141 mmol/L 06/16/25, 09:15 Potassium, (3.5-5.1) 4.0 mmol/L 06/16/25, 09:15 Chloride, (98-107) 105 mmol/L 06/16/25, 09:15 Carbon Dioxide, (20.0-31.0) 27.8 mmol/L 06/16/25, 09:15 BUN, (9-23) 22 mg/dL 06/16/25, 09:15 Creatinine, (0.73-1.18) 0.6 mg/dL L 06/16/25, 09:15 Est GFR (CKD-EPI 2020), (mL/min/1.73m2) 136.60 06/16/25, 09:15 Calcium, (8.3-10.6) 9.7 mg/dL 06/16/25, 09:15 Glucose, (74-106) 84 mg/dL 06/16/25, 09:15 Anesthesia Assessment and Plan Anesthesia History Personal History: No History of Anesthesia Complications Family History: No Family History of Anesthesia Complications Exercise Tolerance Exercise Tolerance: Metabolic Equivalents>4 Implantable Cardiac Device Does patient have a Pacemaker or an ICD?: No Airway Exam Known Difficult Airway: No Mallampati Class: 2 Mouth Opening: Normal (> 3cm) Thyromental Distance: Greater than 3 cm Neck Range of Motion: Full ROM Neck Circumference: Normal Teeth Condition: Generalized Poor Dentition (few teeth on bottom, none loose per pt. ) and Removable Dentures/Plates Upper
[2025-06-29] MEDS: Tranexamic Acid 650 MG TAB 1300 MG PO (12:10)
[2025-06-29] MEDS: oxyCODONE 5 MG TAB PO (12:10)
--- NOTE | 2025-06-29 12:29 | W.ANESPOSTOP ---
Postoperative Evaluation Date, Time and Location Date Performed: 06/29/25 Time Performed: 12:29 Patient Location: Day Surgery Unit Vital Signs Most Recent Imported Vital Signs: Most Recent Vital Signs Temp Pulse Resp BP Pulse Ox 36.4 C L 64 16 121/84 96 06/29/25 12:00 06/29/25 12:00 06/29/25 12:00 06/29/25 12:00 06/29/25 12:00 Pain Score Most Recent Pain Score: Most Recent Pain Score Pain Level 3 06/29/25 12:00 Assessment Mental Status: Awake (Alert & Oriented to Patient Baseline) Airway and Respiratory Function: Patent airway with normal (patient baseline) respiratory exam Cardiovascular Function: Hemodynamically Stable Hydration Status: Adequately Hydrated Nausea & Vomiting: No Nausea or Vomiting Pain: Pain is tolerable per patient Peripheral Nerve Block: Regional nerve block not resolved at time of post operative discharge
--- NOTE | 2025-06-29 12:55 | IN_ITS ---
PT Notes Visit Reasons: L TKR Physical Therapy Day Surgery Initial Evaluation Date: Referring Doctor: JAMES Macedo/Dr. Redd 06/29/2025 PT Orders: PT CONSULT: PT evaluation and treat after Ortho surgery Precautions: WBAT left LE with device Patient Profile/Admitting Diagnosis: Vince is a 50-year-old male presenting status post elective left TKA by Dr. Redd under spinal anesthesia with nerve block on 06/29/2025. Postop uncomplicated PMHX: Essential hypertension (Acute) Cannabis use disorder (Acute) Tobacco user (Acute) Tear of medial meniscus of left knee (Acute) Osteoarthritis of left knee (Acute) DEPO MEDROL 03/24/25MCL sprain of left knee (Acute ~06/2023) Sensorineural hearing loss (SNHL) of both ears (Acute) Dysphagia (Acute) Cellulitis of right hand (Acute) Medical History (Updated 03/24/25 @ 09:31 by Quintin Felix RN) History of psychiatric disorder Osteoarthritis Follow up Family history of colon cancer Wheezing Left shoulder pain Hepatitis C (~11/21/22) per pt. tx and curedPrediabetes Expiratory wheezing Joint pain Hypertensive disorder Anemia Opioid abuse, in remission (~07/13/23) h/o IVDU, sober since 2007 Surgical History (Updated 08/10/24 @ 07:41 by Courtney Seay) History of esophagogastroduodenoscopy (~03/2023) History of colonoscopy (~07/2024) History of hernia repair H/O foot surgery H/O shoulder surgery Social History/Home Situation: Pt resides with his in 1 level home with 3 [address] with rail. Pt is employed as a delivery rn. He notes he has a 50 pound weight lift restriction to return to work. 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's is a home health aide and will be able to assist as needed Equipment Owned/DME: fitted for and issued FWW Subjective: Patient reports he has some pain in the back of his knee but is able to attempt participation in evaluation Objective: [] General Observation: Male presented semireclined on stretcher with Cryo/Cuff to left knee, and RN Zoe present in room Mental Status: Alert and oriented x 4, cooperative, able to follow instructions, agreeable to participate in evaluation Pain: left knee mid thigh and posterior knee at hamstring insertion 4/10 rest 5 with activity ROM: [] Right Upper Extremity: WNL Left Upper Extremity: WNL except shoulder flexion and abduction ER limited d/t rotator cuff injury Right Lower Extremity: [WFL Left Lower Extremity: hip and ankle WNL, knee 0-95 degrees supine ;noted s hortened hamstring length Strength: [] Right Upper Extremity: 5/5 Left Upper Extremity: shoulder 3-/5 elbow and hand 5/5 Right Lower Extremity: 5/5 Left Lower Extremity: Hip flexion: 3-/5; hip abduction: 3-/5; hip extension: 3- /5; knee extension: 3/5; knee flexion: 2+/5 ankle DF: 3 /5 ; ankle PF: 3 /5, Strong quad set with cues, no lag with shortened Range SLR when initiate with quad set Sensation: intact Bed Mobility/Transfers: [] Supine to sit supervision Sit to stand SBA Stand to sit SBA Bed to chair SBA with FWW Gait: amb 150 feet with FWW initially CGA but progressed to SBA with intermittent cues for quad activation to sustain knee extension at mid stance. Pt preference to have in April.slight knee flexion at mid stance demonstrating slight limp as quad is not activated Stairs: 5 steps with 2 rails SBA and cues for quad activation with WB step to pattern. Balance: [] Static Sitting: Normal Dynamic Sitting: Good Static Standing: Good Dynamic Standing: Fair + Special Tests: [] Mobility Limitations Standardized Measure [] [facility] AM-PAC 6 clicks Basic Mobility Inpatient Short Form: [] Raw Score: 23 CMS Score: 11.20% deficit Informed Consent/Education: Patient instructed in purpose of PT consult. Treatment: 11654 Packet containing TKA exercise protocol has been given to patient. Education and training on initial set of 5 reps of exercises that can be done at home have been completed with patient. Pt required tactile and verbal cueing to activate quad set and initiate SLR with quad set .Stairs with 1 rail.SBA and cues for quad activation with WB LLE. demonstrates ability to provide appropriate cueing for quad activationpick. Assessment: Pt is hesitant to WB through LLE despite no increase in pain when he does WB. Pt requires cues to activate Quad at mid stance wellLeft. He noted he has walked with his knee bent for so long now that it is habit Pt's instructed to remind pt to straighten knee completely during stance phase of walking and stair performance.. Patient is a 50 yo male who presents with clinical signs and symptoms consistent with current/admitting diagnoses that have resulted to mobility limitations, gait instability, generalized weakness, and impairment of motor control as demonstrated by the following impairment level findings: 1. Decreased strength to left knee major muscle groups 2. Impaired standing balance 3. Limitation of joint range of motion in left knee 4. Pain in left knee Impairments are contributing to the following functional limitations: 1. Inability to safely ambulate without assistive device 2. Increase completion time for mobility ADL performance 3. Increased fall risk 4. diifficulty performing stairs without assistance Patient is assessed as a low complexity based on the following: History: 50-year-old male with impairment level findings, functional limitations, and past medical history as indicated above Examination: Demonstrable impairment in strength, balance, and mobility level with underlying impairments and functional limitations as documented above Presentation: stable /evolving Decision Making: low Goals: N/A. PT evaluation and 1-2 treatment sessions only for functional mobility training using recommended AD and for HEP instruction. Plan of Care/Treatment Plan: N/A. PT evaluation and 1-2 treatment session only for functional mobility training using recommended AD and for HEP instruction. DISCHARGE RECOMMENDATIONS: Home with HEP and outpatient PT as scheduled TREATMENT CODE/TIME: 60298,67331/ [id number] Thank you for the opportunity to participate in the care of this patient. Rehana Mckeon,PT [facility]
== END 2025-06-29 13:07 | disposition home or self-care (01) ==
PROVIDERS: PCP Family Medicine; Visit Provider Student in an Organized Health Care Education/Training Program
PROC: (CPT 27447; principal; 2025-06-29 09:15)
DX: M17.12 Unilateral primary osteoarthritis, left knee (principal); I10 Essential (primary) hypertension; Z80.0 Family history of malignant neoplasm of digestive organs; G89.18 Other acute postprocedural pain
CPT/HCPCS: 27447; 64447; 64450; 97161; 97530; C1776; J0665; J0666; J0690; J1100; J2250; J2401; J2405; J2704; J3010; J3475

== ENCOUNTER 2025-07-14 12:52 | Outpatient (CLI) | payer OTHER, SELFPAY ==
--- NOTE | 2025-07-14 09:30 | DI.RAD_ITS ---
Exam(s) XR KNEE LT 1V XR STANDING ALIGNMENT EXAM: XR STANDING ALIGNMENT and XR knee LT 1 V CLINICAL HISTORY: 1ST POST OP S/P L TKA. TECHNIQUE: 2D digital imaging was performed. Five images were obtained. COMPARISON: CR XR STANDING ALIGNMENT from 06/16/2025 CR XR KNEE LT 1V from 06/16/2025 FINDINGS: BONES: The hips are well maintained. There has been interval placement of a left total knee arthroplasty. The orthopedic hardware appears in good position. There are mild arthritic changes seen in the right knee. There is chondrocalcinosis seen in the medial femoral tibial joint. The ankles are well maintained.There is no significant leg length discrepancy. SOFT TISSUE: Normal. IMPRESSION: Left total knee arthroplasty. DATA REPOSITORY: RADIATION DOSE DELIVERED:
== END 2025-07-14 12:53 | disposition home or self-care (01) ==
LOC: DIORS 13:36
PROVIDERS: PCP Family Medicine; Visit Provider Physician Assistant
DX: Z96.652 Presence of left artificial knee joint (principal)
CPT/HCPCS: 73560; 77073